=== PATIENT | female | born 1930 | race Caucasian/White ===

== ENCOUNTER 2016-10-07 18:28 | Inpatient (IN) | payer MEDICARE, OTHER ==
[2016-10-07] MEDS ORDERED: Acetaminophen TAB* 325 MG PO ONE (18:51)
[2016-10-07 19:00] LABS: Hematocrit 30 % (35-47); Hemoglobin 9.9 g/dl (12.0-16.0); Mean Corpuscular HGB Conc 32 g/dl (31-36); Mean Corpuscular Hemoglobin 29 pg (27-31); Mean Corpuscular Volume 91 fL (80-97); Mean Platelet Volume 8 um3 (7.4-10.4); Red Blood Count 3.35 10^6/ul (4.0-5.4); Red Cell Distribution Width 14 % (10.5-15); White Blood Count 11.8 10^3/ul (3.5-10.8)
[2016-10-07 19:12] LABS: Albumin 3.3 g/dL (3.2-5.2); BUN/Creatinine Ratio 17.9 (8-20); C Reactive Protein 149.65 mg/L (< 5.00); Calcium 8.6 mg/dL (8.6-10.3); EGFR African American 59.6 (>60); EGFR Non-African American 46.3 (>60); Globulin 3.8 g/dL (2-4); Total Bilirubin 0.6 mg/dL (0.2-1.0); Total Protein 7.1 g/dL (6.4-8.9)
[2016-10-07 19:13] LABS: Troponin I 0.01 ng/mL (<0.04)
[2016-10-07 19:20] LABS: Potassium 3.9 mmol/L (3.5-5.0)
--- NOTE | 2016-10-07 19:43 | RAD ---
INDICATION: Cough. Short of breath. COMPARISON: January 19, 2016 TECHNIQUE: An AP portable view obtained at 1930 hours is submitted. FINDINGS: Bones/Soft Tissues: There are no acute bony findings. Cardiomediastinal: The heart is normal in size. Central pulmonary vessels and interstitium are mildly prominent.. Lungs: There are no focal infiltrates. Pleura: There are small bilateral pleural effusions. Other: None IMPRESSION: SUSPECT MILD INTERSTITIAL CONGESTION.
[2016-10-07] MEDS ORDERED: Levofloxacin 750 MG IVPREMIX(* 750 MG/150 ML BAG IVPB ONE (19:45)
[2016-10-07] MEDS: NS 0.9% 1000 ML* 2,000 ML IV ONE ×2 (20:05→21:10)
--- NOTE | 2016-10-07 20:10 | ED ---
Marcelo Sparrow Billy, scribed for Tino Dorantes MD on 10/07/16 at 1858 . Complex/Multi-Sys Presentation - HPI Summary HPI Summary: Patient is an 86 year-old female BIBA to [facility] for evaluation of cough and SOB for the last week. Glass Cutter reports that patient has also been lethargic, delirious, rhinorrhea, and ankle swelling. Fever 101F. Nothing has made her symptoms better or worse. Patient has been treated with azithromycin for 3 days without improvement. She normally has 24/7 home care. Positive recent flu shot, within the last year. - History Of Current Complaint Chief Complaint: EDRespiratoryDistress Time Seen by Provider: 10/07/16 18:51 Hx Obtained From: Patient Onset/Duration: Gradual Onset, Lasting Days, Still Present Timing: Constant Severity Currently: Moderate Severity Initially: Moderate Aggravating Factor(s): none Alleviating Factor(s): none Associated Signs And Symptoms: Positive: Confusion, SOB, Cough, Fever, Other - lethargy, rhinorrhea - Allergies/Home Medications Allergies/Adverse Reactions: Allergies Allergy/AdvReac Type Severity Reaction Status Date / Time Penicillins Allergy Unknown Verified 01/19/16 10:48 Reaction Details Home Medications: Home Medications Bumetanide TAB* [Bumex 2 MG TAB*] 2 mg PO BID 10/07/16 [History Confirmed ] Calcium & Phosphorus W/ Vitami [Citracal+D3 250-107-500 mg-mg-Unit] 1 chw PO DAILY 10/07/16 [History Confirmed 10/07/16] Docusate CAP* [Colace Cap*] 100 mg PO BID 10/07/16 [History Confirmed 10/07/16] Multivitamins/Minerals TAB* [Theragran/minerals TAB*] 1 tab PO DAILY 10/07/16 [ History Confirmed 10/07/16] clonazePAM TAB(*) [Klonopin TAB(*)] 1 mg PO TID PRN 10/07/16 [History Confirmed 10/07/16] PMH/Surg Hx/FS Hx/Imm Hx Cardiovascular History: Reports: Hx Congestive Heart Failure, Hx Coronary Artery Disease, Hx Hypertension Respiratory History: Reports: Hx Asthma, Hx Chronic Obstructive Pulmonary Disease (COPD), Other Respiratory Problems/Disorders - 2.5L Home O2 Neurological History: Reports: Hx Dementia, Other Neuro Impairments/Disorders - Parkinson's Psychiatric History: Reports: Hx Anxiety - Cancer History Cancer Type, Location and Year: BREAST CANCER Hx Radiation Therapy: Yes Hx Palliative Cancer Treatment: Yes - LEFT MASECTOMY - Surgical History Surgery Procedure, Year, and Place: LUMPECTOMY & MASECTOMY LEFT BREAST. CATARACT SURGERY Hx Anesthesia Reactions: No - Immunization History Date of Influenza Vaccine: 06/12/13 Infectious Disease History: Unable to Obtain/Confirm Infectious Disease History: Denies: Traveled Outside the [place] in Last 30 Days - Family History Known Family History: Positive: Hypertension - Social History Alcohol Use: None Substance Use Type: Reports: None Hx Tobacco Use: No Smoking Status (MU): Never Smoked Tobacco Review of Systems Positive: Fever Positive: Nasal Discharge Positive: Shortness Of Breath, Cough Neurological: Other - lethargy, "delirious" All Other Systems Reviewed And Are Negative: Yes Physical Exam - Summary Physical Exam Summary: The patient is well-nourished in no acute distress and in no acute pain. The skin is warm and dry and pale. Decreased skin turgor. HEENT: The head is normocephalic and atraumatic. Pupils not visualized. The conjunctivae are clear and without drainage. Nares are patent and without drainage. Mouth reveals dry mucous membranes and the throat is without erythema and exudate. The external ears are intact. The ear canals are patent and without drainage. The tympanic membranes are intact. Neck is supple with full range of motion and non-tender. There are no carotid bruits. There is no neck vein distension. Respiratory: Chest is non-tender. Rales in the right lung base. Cardiovascular: Heart is regular rate and rhythm. There is no murmur or rub auscultated. There is no peripheral edema and pulses are symmetrical and equal. Abdomen: The abdomen is soft and non-tender. There are normal bowel sounds heard in all four quadrants and there is no organomegaly palpated. Musculoskeletal: There is no back pain noted. Extremities are non-tender with full range of motion. There is good capillary refill. Mild pitting edema of the pretibial regions. Neurological: Followed simple commands, but had general weakness. Psychiatric: Level 5 caveat. Triage Information Reviewed: Yes Vital Signs On Initial Exam: Initial Vitals Temp Pulse Resp BP Pulse Ox 101.0 F 79 18 109/55 93 10/07/16 18:29 03/09/17 18:29 10/07/16 18:29 10/07/16 18:29 10/07/16 18:29 Vital Signs Reviewed: Yes Diagnostics - Vital Signs Vital Signs Temp Pulse Resp BP Pulse Ox 10/07/16 18:29 101.0 F 79 18 109/55 93 - Laboratory Lab Results: Lab Results 10/07/16 10/07/16 10/07/16 Range/Units 18:44 18:44 18:44 WBC 11.8 H (3.5-10.8) 10^3/ul RBC 3.35 L (4.0-5.4) 10^6/ul Hgb 9.9 L (12.0-16.0) g/dl Hct 30 L (35-47) % MCV 91 (80-97) fL MCH 29 (27-31) pg MCHC 32 (31-36) g/dl RDW 14 (10.5-15) % Plt Count 217 (150-450) 10^3/ul MPV 8 (7.4-10.4) um3 Neut % (Auto) 67.1 (38-83) % Lymph % (Auto) 20.8 L (25-47) % [place] % (Auto) 8.4 (1-9) % Eos % (Auto) 3.3 (0-6) % Baso % (Auto) 0.4 (0-2) % Absolute Neuts (auto) 7.9 H (1.5-7.7) 10^3/ul Absolute Lymphs (auto) 2.4 (1.0-4.8) 10^3/ul Absolute Monos (auto) 1.0 H (0-0.8) 10^3/ul Absolute Eos (auto) 0.4 (0-0.6) 10^3/ul Absolute Basos (auto) 0 (0-0.2) 10^3/ul Absolute Nucleated RBC 0 10^3/ul Nucleated RBC % 0 INR (Anticoag Therapy) 0.95 (0.89-1.11) APTT 24.4 L (26.0-36.3) seconds Sodium 133 (133-145) mmol/L Potassium 3.9 (3.5-5.0) mmol/L Chloride 96 L (101-111) mmol/L Carbon Dioxide 28 (22-32) mmol/L Anion Gap 9 (2-11) mmol/L BUN 20 (6-24) mg/dL Creatinine 1.12 H (0.51-0.95) mg/dL Est GFR ( Amer) 59.6 (>60) Est GFR (Non-Af Amer) 46.3 (>60) BUN/Creatinine Ratio 17.9 (8-20) Glucose 148 H (70-100) mg/dL Lactic Acid (0.5-2.0) mmol/L Calcium 8.6 (8.6-10.3) mg/dL Total Bilirubin 0.60 (0.2-1.0) mg/dL AST 27 (13-39) U/L ALT 4 L (7-52) U/L Alkaline Phosphatase 103 (34-104) U/L Troponin I 0.01 (<0.04) ng/mL C-Reactive Protein 149.65 H (< 5.00) mg/L Total Protein 7.1 (6.4-8.9) g/dL Albumin 3.3 (3.2-5.2) g/dL Globulin 3.8 (2-4) g/dL Albumin/Globulin Ratio 0.9 L (1-3) Influenza A (Rapid) (Negative) Influenza B (Rapid) (Negative) 10/07/16 10/07/16 Range/Units 18:44 19:04 WBC (3.5-10.8) 10^3/ul RBC (4.0-5.4) 10^6/ul Hgb (12.0-16.0) g/dl Hct (35-47) % MCV (80-97) fL MCH (27-31) pg MCHC (31-36) g/dl RDW (10.5-15) % Plt Count (150-450) 10^3/ul MPV (7.4-10.4) um3 Neut % (Auto) (38-83) % Lymph % (Auto) (25-47) % [place] % (Auto) (1-9) % Eos % (Auto) (0-6) % Baso % (Auto) (0-2) % Absolute Neuts (auto) (1.5-7.7) 10^3/ul Absolute Lymphs (auto) (1.0-4.8) 10^3/ul Absolute Monos (auto) (0-0.8) 10^3/ul Absolute Eos (auto) (0-0.6) 10^3/ul Absolute Basos (auto) (0-0.2) 10^3/ul Absolute Nucleated RBC 10^3/ul Nucleated RBC % INR (Anticoag Therapy) (0.89-1.11) APTT (26.0-36.3) seconds Sodium (133-145) mmol/L Potassium (3.5-5.0) mmol/L Chloride (101-111) mmol/L Carbon Dioxide (22-32) mmol/L Anion Gap (2-11) mmol/L BUN (6-24) mg/dL Creatinine (0.51-0.95) mg/dL Est GFR ( Amer) (>60) Est GFR (Non-Af Amer) (>60) BUN/Creatinine Ratio (8-20) Glucose (70-100) mg/dL Lactic Acid 1.4 (0.5-2.0) mmol/L Calcium (8.6-10.3) mg/dL Total Bilirubin (0.2-1.0) mg/dL AST (13-39) U/L ALT (7-52) U/L Alkaline Phosphatase (34-104) U/L Troponin I (<0.04) ng/mL C-Reactive Protein (< 5.00) mg/L Total Protein (6.4-8.9) g/dL Albumin (3.2-5.2) g/dL Globulin (2-4) g/dL Albumin/Globulin Ratio (1-3) Influenza A (Rapid) Negative (Negative) Influenza B (Rapid) Negative (Negative) Result Diagrams: 10/07/16 18:44 10/07/16 18:44 Lab Statement: Any lab studies that have been ordered have been reviewed, and results considered in the medical decision making process. - Radiology CXR Radiology Interpretation Completed By: Radiologist - SUSPECT MILD INTERSTITIAL CONGESTION. - EKG 1855 EKG Interpretation: NSR 75 bpm; Q-waves in II, III, and aVF; no ST elevation Re-Evaluation - Re-Evaluation First Eval Re-Evaluation Time: 19:48 Change: Unchanged Comment: Labs and imaging reviewed. Plan for admission discussed. Patient remains lethargic. Complex Multi-Symp Course/Dx Assessment/Plan: 86 y/o female coming to the ED for evaluation of SOB and cough. CXR shows suspect mild interstitial congestion. EKG shows NSR and Q- waves without ST elevation. Case discussed with hospitalist, who accepted admission. - Diagnoses Differential Diagnoses/HQI/PQRI: Other - pneumonia, influenza, chf, pneumonia, copd exacerabation, bronchitis, uti Provider Diagnoses: Fever, PNA (pneumonia), CHF (congestive heart failure), Altered mental status - Physician Notifications Discussed Care Of Patient With: Dr. Robb (hospitalist) @ 2004: accepts admission. Discharge - Discharge Plan Condition: Stable Disposition: ADMITTED TO [facility] Referrals: No Primary Care Phys,NOPCP [Primary Care Provider] - The documentation as recorded by the Marcelo ramírez Billy accurately reflects the service I personally performed and the decisions made by me, Tino Dorantes MD.
--- NOTE | 2016-10-07 21:10 | HP ---
H&P (Free Text) History and Physical: PCP: Cresencio Sahu MD Date/Time of Evaluation: 10/07/2016 2115 CC: SOB HPI: Mrs Bach is an 86YO female who is moderately demented and unable to contribute to this history which was obtained from family present, ED staff, & the available medical record. Mrs Bach reportedly began having increased head/ nasal congestion ~1 week ago for which her PCP called in azithromycin. She has been having increased pedal edema associated with increased thirst, but no swelling into the lower leg. There is no report of chest pain, N/V, abdominal pain, or other issues. She has only taken 2days of the azithromycin. Work up shows her febrile at 38.3C with otherwise stable vitals. CXR is most consistent with mild failure, but BNP speaks against this at 71. She has a stable normocytic anemia & stable CKD stg 3a. ECG is benign. PMedHx CHF CAD CKD stg 3a COPD Parkinsonism dementia normocytic anemia Allergies Penicillins Allergy (Verified 01/19/16 10:48) Unknown Reaction Details Ambulatory Orders Albuterol/Ipratropium NEB.PATRICK* [Duoneb NEB.PATRICK*] 1 dose INH BID PRN 08/22/13 Aspirin TAB* [Aspirin 325 MG TAB*] 325 mg PO DAILY 08/22/13 Fluticasone-Salmeterol 250-50* [Advair Diskus 250-50*] 1 puff INH BID 08/22/13 Isosorbide Mononitrate ER TAB* [Imdur ER TAB*] 30 mg PO QAM 08/22/13 Metoprolol Tartrate TAB* [Lopressor TAB*] 12.5 mg PO DAILY 08/22/13 Polyethylene Glycol 3350* [Miralax*] 1 pkt PO DAILY 08/22/13 Primidone TAB(*) [Mysoline TAB(*)] 50 mg PO BEDTIME 08/22/13 QUEtiapine TAB* [Seroquel TAB*] 25 mg PO BID 08/22/13 Tiotropium CAP.INH* [Spiriva CAP.INH*] 1 inh INH DAILY 08/22/13 Topiramate TAB(*) [Topamax 25 MG(*)] 25 mg PO BEDTIME 08/22/13 Atorvastatin* [Lipitor 20 MG*] 20 mg PO DAILY 01/19/16 Carbidopa/Levodop 25/100 MG(*) [Sinemet 25/100 TAB(*)] 1.5 tab PO TID 06/14/16 Bumetanide TAB* [Bumex 2 MG TAB*] 2 mg PO BID 10/07/16 Calcium & Phosphorus W/ Vitami [Citracal+D3 250-107-500 mg-mg-Unit] 1 chw PO DAILY 10/07/16 Docusate CAP* [Colace Cap*] 100 mg PO BID 10/07/16 Multivitamins/Minerals TAB* [Theragran/minerals TAB*] 1 tab PO DAILY 10/07/16 clonazePAM TAB(*) [Klonopin TAB(*)] 1 mg PO TID PRN 10/07/16 PSurgHx lumpectomy, L breast OU cataract extractions cardiac stent SocHx: no tobacco, alcohol, or recreational drugs; , lives with her ; uses a walker to ambulate; full code status FamHx: unobtainable ROS: as above, otherwise reviewed and all were negative Constitutional: NAD, normally developed, well-nourished white female vitals: Vital Signs Temp 38.3 C 10/07/16 18:29 Pulse 74 10/07/16 19:30 Resp 17 10/07/16 19:30 BP 94/50 10/07/16 19:30 Pulse Ox 99 10/07/16 20:36 Intake & Output 10/06/16 10/07/16 10/07/16 23:59 11:59 23:59 Intake Total 1000 Balance 1000 Weight 49.895 kg Intake: IV Fluids 1000 HEENM: atraumatic; sclera/conjunctiva: non-icteric/clear; hearing: clinically mildly decreased; oropharynx: clear, mucosa moist Neck: soft tissue: non-tender; thyroid: normal Pulmonary: mid- to end- expiratory wheeze with bibasilar coarse crackles which improve notably with deep inspiration, good aeration, no accessory muscle use CV: RR/RR, normal S1S2, no carotid bruit, no jugular venous distention, 2+ B DP/ PT, no edema Abdominal: soft, non-distended, non-tender, no rebound/guarding/rigidity, normoactive bowel sounds, no hepatosplenomegaly or masses, no costovertebral angle tenderness Musculoskeletal: general: grossly intact; gait: unsteady Integumental: normal appearance and texture Psychiatric orientation: AA&O to person only affect: calm mood: cooperative eye contact: fair content: unreliable memory: impaired responses: slightly slowed insight: poor Testing: Lab Results 10/07/16 10/07/16 10/07/16 Range/Units 18:44 18:44 18:44 WBC 11.8 H (3.5-10.8) 10^3/ul RBC 3.35 L (4.0-5.4) 10^6/ul Hgb 9.9 L (12.0-16.0) g/dl Hct 30 L (35-47) % MCV 91 (80-97) fL MCH 29 (27-31) pg MCHC 32 (31-36) g/dl RDW 14 (10.5-15) % Plt Count 217 (150-450) 10^3/ul MPV 8 (7.4-10.4) um3 Neut % (Auto) 67.1 (38-83) % Lymph % (Auto) 20.8 L (25-47) % [place] % (Auto) 8.4 (1-9) % Eos % (Auto) 3.3 (0-6) % Baso % (Auto) 0.4 (0-2) % Absolute Neuts (auto) 7.9 H (1.5-7.7) 10^3/ul Absolute Lymphs (auto) 2.4 (1.0-4.8) 10^3/ul Absolute Monos (auto) 1.0 H (0-0.8) 10^3/ul Absolute Eos (auto) 0.4 (0-0.6) 10^3/ul Absolute Basos (auto) 0 (0-0.2) 10^3/ul Absolute Nucleated RBC 0 10^3/ul Nucleated RBC % 0 INR (Anticoag Therapy) 0.95 (0.89-1.11) APTT 24.4 L (26.0-36.3) seconds Sodium 133 (133-145) mmol/L Potassium 3.9 (3.5-5.0) mmol/L Chloride 96 L (101-111) mmol/L Carbon Dioxide 28 (22-32) mmol/L Anion Gap 9 (2-11) mmol/L BUN 20 (6-24) mg/dL Creatinine 1.12 H (0.51-0.95) mg/dL Est GFR ( Amer) 59.6 (>60) Est GFR (Non-Af Amer) 46.3 (>60) BUN/Creatinine Ratio 17.9 (8-20) Glucose 148 H (70-100) mg/dL Lactic Acid (0.5-2.0) mmol/L Calcium 8.6 (8.6-10.3) mg/dL Total Bilirubin 0.60 (0.2-1.0) mg/dL AST 27 (13-39) U/L ALT 4 L (7-52) U/L Alkaline Phosphatase 103 (34-104) U/L Troponin I 0.01 (<0.04) ng/mL C-Reactive Protein 149.65 H (< 5.00) mg/L B-Natriuretic Peptide ( - 100) pg/mL Total Protein 7.1 (6.4-8.9) g/dL Albumin 3.3 (3.2-5.2) g/dL Globulin 3.8 (2-4) g/dL Albumin/Globulin Ratio 0.9 L (1-3) Influenza A (Rapid) (Negative) Influenza B (Rapid) (Negative) 10/07/16 10/07/16 10/07/16 Range/Units 18:44 18:44 19:04 WBC (3.5-10.8) 10^3/ul RBC (4.0-5.4) 10^6/ul Hgb (12.0-16.0) g/dl Hct (35-47) % MCV (80-97) fL MCH (27-31) pg MCHC (31-36) g/dl RDW (10.5-15) % Plt Count (150-450) 10^3/ul MPV (7.4-10.4) um3 Neut % (Auto) (38-83) % Lymph % (Auto) (25-47) % [place] % (Auto) (1-9) % Eos % (Auto) (0-6) % Baso % (Auto) (0-2) % Absolute Neuts (auto) (1.5-7.7) 10^3/ul Absolute Lymphs (auto) (1.0-4.8) 10^3/ul Absolute Monos (auto) (0-0.8) 10^3/ul Absolute Eos (auto) (0-0.6) 10^3/ul Absolute Basos (auto) (0-0.2) 10^3/ul Absolute Nucleated RBC 10^3/ul Nucleated RBC % INR (Anticoag Therapy) (0.89-1.11) APTT (26.0-36.3) seconds Sodium (133-145) mmol/L Potassium (3.5-5.0) mmol/L Chloride (101-111) mmol/L Carbon Dioxide (22-32) mmol/L Anion Gap (2-11) mmol/L BUN (6-24) mg/dL Creatinine (0.51-0.95) mg/dL Est GFR ( Amer) (>60) Est GFR (Non-Af Amer) (>60) BUN/Creatinine Ratio (8-20) Glucose (70-100) mg/dL Lactic Acid 1.4 (0.5-2.0) mmol/L Calcium (8.6-10.3) mg/dL Total Bilirubin (0.2-1.0) mg/dL AST (13-39) U/L ALT (7-52) U/L Alkaline Phosphatase (34-104) U/L Troponin I (<0.04) ng/mL C-Reactive Protein (< 5.00) mg/L B-Natriuretic Peptide 71 ( - 100) pg/mL Total Protein (6.4-8.9) g/dL Albumin (3.2-5.2) g/dL Globulin (2-4) g/dL Albumin/Globulin Ratio (1-3) Influenza A (Rapid) Negative (Negative) Influenza B (Rapid) Negative (Negative) ECG, personally reviewed: NSR rate 75, small inferior Q-waves of uncertain significance CXR, personally reviewed: IMPRESSION: SUSPECT MILD INTERSTITIAL CONGESTION. Impression: 86F presenting with SOB and fever w/ CXR more consistent w/ CHF but a BNP of 73 DIAGNOSIS & PLAN Primary atypical pneumonia, suspected : given 750mg levofloxacin in ED, will not continue given HX dementia : start azithromycin & ceftriaxone IV tomorrow : guaifenesin : blood & sputum CXs : obtain UA : IVFs gently given HX CHF & CXR appearance : supplemental oxygen : supportive care COPD exacerbation, mild : albuterol nebs : mometasone/salmeterol : tiotropium : incentive spirometry : IV methylprednisolone Secondary CHF : continue bumetanide, metoprolol CAD : continue aspirin, metoprolol, & isosorbide mononitrate HLD : continue atorvastatin Parkinsonism : continue carbi/levodopa & primidone dementia : continue quetiapine Admission Rational: observation for SOB, suspect CAP less likely CHF DVTp: heparin SQ & SCDs Code Status: full HCP:
[2016-10-07] MEDS ORDERED: clonazePAM TAB(*) 1 MG PO PRN (21:35)
[2016-10-07] MEDS ORDERED: Acetaminophen TAB* 325 MG PO PRN (21:51)
[2016-10-07] MEDS ORDERED: Albuterol 2.5 MG/3 ML NEB.SOL* (0.083%) INH PRN (21:51)
[2016-10-07] MEDS ORDERED: Ondansetron INJ* 2 MG/ML VIAL IV PRN (21:51)
[2016-10-07] MEDS ORDERED: Melatonin (NF) 3 MG TAB PO PRN (21:51)
[2016-10-07] MEDS ORDERED: methylPREDNISolone 125 MG* 2 ML VIAL IV ONE (22:57)
[2016-10-08] MEDS: guaiFENesin ER TAB 600 MG PO SCH ×3 (00:16→20:07)
[2016-10-08] MEDS ORDERED: CMCS Melatonin (NF) 3 MG TAB PO PRN (04:05)
[2016-10-08 05:19] LABS: Hematocrit 29 % (35-47); Hemoglobin 9.4 g/dl (12.0-16.0); Mean Corpuscular HGB Conc 33 g/dl (31-36); Mean Corpuscular Hemoglobin 30 pg (27-31); Mean Corpuscular Volume 91 fL (80-97); Mean Platelet Volume 8 um3 (7.4-10.4); Red Blood Count 3.14 10^6/ul (4.0-5.4); Red Cell Distribution Width 15 % (10.5-15); White Blood Count 9.8 10^3/ul (3.5-10.8)
[2016-10-08] MEDS: Omeprazole CAP* 20 MG PO SCH (05:20)
[2016-10-08] MEDS: Heparin VIAL(*) 5000 UNITS/ML VIAL (FIVE THOUSAND) SUBCUT SCH ×3 (05:20→20:29)
[2016-10-08 05:29] LABS: BUN/Creatinine Ratio 19.1 (8-20); Calcium 8.4 mg/dL (8.6-10.3); EGFR Non-African American 56.7 (>60); Potassium 3.5 mmol/L (3.5-5.0)
[2016-10-08] MEDS: Albuterol 2.5 MG/3 ML NEB.SOL* (0.083%) INH SCH ×4 (06:04→19:29)
[2016-10-08 06:31] LABS: Urine Bilirubin Negative (Negative); Urine Glucose Negative (Negative); Urine Nitrite Negative (Negative)
[2016-10-08] MEDS ORDERED: Spiriva Inhaler DEVICE* 1 EACH DEVICE INH ONE (09:00)
[2016-10-08] MEDS ORDERED: Isosorbide Mononitrate ER TAB* 30 MG PO SCH (09:00)
[2016-10-08] MEDS ORDERED: Bumetanide TAB* 2 MG PO SCH (09:00)
[2016-10-08] MEDS ORDERED: methylPREDNISolone SOD 40 MG* 1 ML VIAL IV SCH (09:00)
[2016-10-08] MEDS ORDERED: Metoprolol Tartrate TAB* 25 MG PO SCH (09:00)
--- NOTE | 2016-10-08 09:04 | PN ---
Subjective Date of Service: 10/08/16 Interval History: Patient seen this morning with present. She is a bit confused but says she wants to go home. Denies any complaints. says he feels her cough has improved. No further fever or chills. He says she was fairly weak over the last days but thinks she is improving today although still needing significant assistance getting to commode. Family History: Unchanged from Admission Social History: Unchanged from Admission Past Medical History: Unchanged from Admission Objective Active Medications: Acetaminophen (Tylenol Tab*) 650 mg PO Q6H PRN Albuterol (Ventolin 2.5 Mg/3 Ml Neb.Sanjuanita*) 2.5 mg INH Q2H PRN Albuterol (Ventolin 2.5 Mg/3 Ml Neb.Sanjuanita*) 2.5 mg INH [id number] AWAKE LENORE Aspirin (Aspirin Tab*) 325 mg PO DAILY LENORE Atorvastatin Calcium (Lipitor*) 20 mg PO DAILY LENORE Bumetanide (Bumex Tab*) 2 mg PO BID LENORE Carbidopa/Levodopa (Sinemet 25/100 Tab(*)) 1.5 tab PO TID LENORE Clonazepam (Klonopin Tab(*)) 1 mg PO TID PRN Device (Tiotropium Inhaler Device*) 1 each INH 0900 ONE Docusate Sodium (Colace Cap*) 100 mg PO BID LENORE Guaifenesin (Mucinex*) 1,200 mg PO BID LENORE Heparin Sodium (Porcine) (Heparin Vial(*)) 5,000 units SUBCUT Q8HR LENORE Ceftriaxone Sodium 1,000 mg/ (Sodium Chloride) 50 mls @ 200 mls/hr IVPB Q24H LENORE Azithromycin 500 mg/ Sodium (Chloride) 250 mls @ 250 mls/hr IVPB Q24H LENORE Isosorbide Mononitrate (Imdur Er Tab*) 30 mg PO QAM LENORE Melatonin (Melatonin (Nf)) 3 mg PO BEDTIME PRN; Protocol Metoprolol Tartrate (Lopressor Tab*) 12.5 mg PO DAILY LENORE Mometasone Furoate/Formoterol Fumar (Dulera 200/5 Mdi*) 2 puff INH BID LENORE Omeprazole (Prilosec Cap*) 20 mg PO DAILY@0600 LENORE Ondansetron HCl (Zofran Inj*) 4 mg IV Q6H PRN Polyethylene Glycol/Electrolytes (Miralax*) 17 gm PO DAILY LENORE Prednisone (Deltasone Tab*) 40 mg PO DAILY LENORE Primidone (Mysoline Tab(*)) 50 mg PO BEDTIME LENORE Quetiapine Fumarate (Seroquel Tab*) 25 mg PO BID LENORE Tiotropium [place] (Spiriva Cap.Inh*) 1 cap INH DAILY LENORE Topiramate (Topamax(*)) 25 mg PO BEDTIME LENORE Vital Signs 10/07/16 10/07/16 10/08/16 21:35 23:22 00:28 Temperature 98.1 F Pulse Rate 71 84 Respiratory 20 18 19 Rate Blood Pressure 91/42 105/53 (mmHg) O2 Sat by Pulse 100 100 Oximetry 10/08/16 10/08/16 10/08/16 02:28 03:52 04:13 Temperature 98.8 F 97.4 F Pulse Rate 68 92 Respiratory 17 19 20 Rate Blood Pressure 88/42 86/57 (mmHg) O2 Sat by Pulse 96 93 Oximetry 10/08/16 10/08/16 04:48 07:32 Temperature 97.7 F Pulse Rate 87 74 Respiratory 16 20 Rate Blood Pressure 106/53 112/47 (mmHg) O2 Sat by Pulse 95 95 Oximetry Oxygen Devices in Use Now: Nasal Cannula - 3L Appearance: Elderly, F, laying in bed, noticeable tremor Eyes: No Scleral Icterus Ears/Nose/Mouth/Throat: Mucous Membranes Moist Neck: NL Appearance and Movements; NL JVP Respiratory: Symmetrical Chest Expansion and Respiratory Effort, - - mild tachypnea, good air movement, no wheezing appreciated in lungs maybe some in upper airways Cardiovascular: NL Sounds; No Murmurs; No JVD, RRR Abdominal: NL Sounds; No Tenderness; No Distention Lymphatic: No Cervical Adenopathy Extremities: - - Minimal LE edema Skin: No Rash or Ulcers Neurological: - - Alert to self Result Diagrams: 10/08/16 04:46 10/08/16 04:46 Additional Lab and Data: Lab Results 10/07/16 10/07/16 10/07/16 Range/Units 18:44 18:44 18:44 WBC 11.8 H (3.5-10.8) 10^3/ul RBC 3.35 L (4.0-5.4) 10^6/ul Hgb 9.9 L (12.0-16.0) g/dl Hct 30 L (35-47) % MCV 91 (80-97) fL MCH 29 (27-31) pg MCHC 32 (31-36) g/dl RDW 14 (10.5-15) % Plt Count 217 (150-450) 10^3/ul MPV 8 (7.4-10.4) um3 Neut % (Auto) 67.1 (38-83) % Lymph % (Auto) 20.8 L (25-47) % [place] % (Auto) 8.4 (1-9) % Eos % (Auto) 3.3 (0-6) % Baso % (Auto) 0.4 (0-2) % Absolute Neuts (auto) 7.9 H (1.5-7.7) 10^3/ul Absolute Lymphs (auto) 2.4 (1.0-4.8) 10^3/ul Absolute Monos (auto) 1.0 H (0-0.8) 10^3/ul Absolute Eos (auto) 0.4 (0-0.6) 10^3/ul Absolute Basos (auto) 0 (0-0.2) 10^3/ul Absolute Nucleated RBC 0 10^3/ul Nucleated RBC % 0 INR (Anticoag Therapy) 0.95 (0.89-1.11) APTT 24.4 L (26.0-36.3) seconds Sodium 133 (133-145) mmol/L Potassium 3.9 (3.5-5.0) mmol/L Chloride 96 L (101-111) mmol/L Carbon Dioxide 28 (22-32) mmol/L Anion Gap 9 (2-11) mmol/L BUN 20 (6-24) mg/dL Creatinine 1.12 H (0.51-0.95) mg/dL Est GFR ( Amer) 59.6 (>60) Est GFR (Non-Af Amer) 46.3 (>60) BUN/Creatinine Ratio 17.9 (8-20) Glucose 148 H (70-100) mg/dL Lactic Acid (0.5-2.0) mmol/L Calcium 8.6 (8.6-10.3) mg/dL Total Bilirubin 0.60 (0.2-1.0) mg/dL AST 27 (13-39) U/L ALT 4 L (7-52) U/L Alkaline Phosphatase 103 (34-104) U/L Troponin I 0.01 (<0.04) ng/mL C-Reactive Protein 149.65 H (< 5.00) mg/L Total Protein 7.1 (6.4-8.9) g/dL Albumin 3.3 (3.2-5.2) g/dL Globulin 3.8 (2-4) g/dL Albumin/Globulin Ratio 0.9 L (1-3) Influenza A (Rapid) (Negative) Influenza B (Rapid) (Negative) 10/07/16 10/07/16 Range/Units 18:44 19:04 WBC (3.5-10.8) 10^3/ul RBC (4.0-5.4) 10^6/ul Hgb (12.0-16.0) g/dl Hct (35-47) % MCV (80-97) fL MCH (27-31) pg MCHC (31-36) g/dl RDW (10.5-15) % Plt Count (150-450) 10^3/ul MPV (7.4-10.4) um3 Neut % (Auto) (38-83) % Lymph % (Auto) (25-47) % [place] % (Auto) (1-9) % Eos % (Auto) (0-6) % Baso % (Auto) (0-2) % Absolute Neuts (auto) (1.5-7.7) 10^3/ul Absolute Lymphs (auto) (1.0-4.8) 10^3/ul Absolute Monos (auto) (0-0.8) 10^3/ul Absolute Eos (auto) (0-0.6) 10^3/ul Absolute Basos (auto) (0-0.2) 10^3/ul Absolute Nucleated RBC 10^3/ul Nucleated RBC % INR (Anticoag Therapy) (0.89-1.11) APTT (26.0-36.3) seconds Sodium (133-145) mmol/L Potassium (3.5-5.0) mmol/L Chloride (101-111) mmol/L Carbon Dioxide (22-32) mmol/L Anion Gap (2-11) mmol/L BUN (6-24) mg/dL Creatinine (0.51-0.95) mg/dL Est GFR ( Amer) (>60) Est GFR (Non-Af Amer) (>60) BUN/Creatinine Ratio (8-20) Glucose (70-100) mg/dL Lactic Acid 1.4 (0.5-2.0) mmol/L Calcium (8.6-10.3) mg/dL Total Bilirubin (0.2-1.0) mg/dL AST (13-39) U/L ALT (7-52) U/L Alkaline Phosphatase (34-104) U/L Troponin I (<0.04) ng/mL C-Reactive Protein (< 5.00) mg/L Total Protein (6.4-8.9) g/dL Albumin (3.2-5.2) g/dL Globulin (2-4) g/dL Albumin/Globulin Ratio (1-3) Influenza A (Rapid) Negative (Negative) Influenza B (Rapid) Negative (Negative) Assess/Plan/Problems-Billing Assessment: CAP, mild COPD exacerbation in an 86 yo F with hx of CAD, CHF, COPD on home O2, Parkinson's, dementia, CKD3 - Patient Problems (1) CAP (community acquired pneumonia) Current Visit: Yes Comment: May be atypical. Continue CTX/Azithromycin. Stop IVF for now. (2) COPD exacerbation Current Visit: No Comment: c/w O2 prednisone 40mg x 5 days nebulizers and inhalers (3) CHF (congestive heart failure) Current Visit: Yes Comment: Continue metoprolol. Hold Bumex this AM. (4) CAD (coronary artery disease) Current Visit: Yes Comment: Continue ASA, Metoprolol, Imdur (5) Parkinson disease Current Visit: No Comment: sinemet (6) DVT prophylaxis Current Visit: Yes Comment: HSQ Status and Disposition: Pending PT eval. If still significantly weak from PNA, will need to stay as inpatient.
[2016-10-08] MEDS: Polyethylene Glycol 3350* 17 GM PACKET PO SCH (09:41)
[2016-10-08] MEDS: Carbidopa/Levodop 25/100 MG TAB(*) PO SCH ×3 (09:43→20:08)
[2016-10-08] MEDS: QUEtiapine TAB* 25 MG PO SCH ×2 (09:48→20:07)
[2016-10-08] MEDS: predniSONE TAB* 20 MG PO SCH (09:50)
[2016-10-08] MEDS: Aspirin TAB* 325 MG PO SCH (09:50)
[2016-10-08] MEDS: Atorvastatin* 20 MG TAB PO SCH (09:52)
[2016-10-08] MEDS: Docusate CAP* 100 MG PO SCH ×2 (09:52→20:08)
[2016-10-08] MEDS: Tiotropium CAP.INH* CAP.INH/18 MCG (USE ORDER SET !) INH SCH (10:04)
[2016-10-08] MEDS: Mometasone/Formoter 200/5 MDI INH SCH ×2 (10:05→20:28)
[2016-10-08] MEDS ORDERED: Magnesium Hydroxide LIQ* 30 ML UDC PO PRN (13:50)
[2016-10-08] MEDS: Senna TAB PO SCH (14:08)
[2016-10-08] MEDS ORDERED: clonazePAM TAB(*) 1 MG PO ONE (16:54)
[2016-10-08] MEDS: cefTRIAXone VIAL(*) 1,000 MG in NS 0.9% 50 ML* 50 ML IVPB SCH (20:04)
[2016-10-08] MEDS: clonazePAM TAB(*) 1 MG PO SCH (20:07)
[2016-10-08] MEDS: Primidone TAB(*) 50 MG PO SCH (20:08)
[2016-10-08] MEDS: Topiramate TAB(*) 25 MG PO SCH (20:08)
[2016-10-08] MEDS: Azithromycin IV(*) 500 MG in NS 0.9% 250 ML* 250 ML IVPB SCH (20:29)
[2016-10-09] MEDS: Albuterol 2.5 MG/3 ML NEB.SOL* (0.083%) INH SCH ×4 (00:58→19:25)
[2016-10-09] MEDS: Heparin VIAL(*) 5000 UNITS/ML VIAL (FIVE THOUSAND) SUBCUT SCH ×3 (05:21→21:31)
[2016-10-09] MEDS: Omeprazole CAP* 20 MG PO SCH (05:21)
[2016-10-09] MEDS: Tiotropium CAP.INH* CAP.INH/18 MCG (USE ORDER SET !) INH SCH (07:37)
[2016-10-09] MEDS: Mometasone/Formoter 200/5 MDI INH SCH ×2 (07:38→23:45)
--- NOTE | 2016-10-09 08:57 | PN ---
Subjective Date of Service: 10/09/16 Interval History: Patient seen this morning. Had confusion this morning, moved closer to nursing station. She has no complaints, denies SOB or wheezing. at bedside, understands concerns about safety, hoping he can take her back home. Family History: Unchanged from Admission Social History: Unchanged from Admission Past Medical History: Unchanged from Admission Objective Active Medications: Acetaminophen (Tylenol Tab*) 650 mg PO Q6H PRN Albuterol (Ventolin 2.5 Mg/3 Ml Neb.Sanjuanita*) 2.5 mg INH Q2H PRN Albuterol (Ventolin 2.5 Mg/3 Ml Neb.Sanjuanita*) 2.5 mg INH [id number] AWAKE LENORE Aspirin (Aspirin Tab*) 325 mg PO DAILY LENORE Atorvastatin Calcium (Lipitor*) 20 mg PO DAILY LENORE Carbidopa/Levodopa (Sinemet 25/100 Tab(*)) 1.5 tab PO TID LENORE Clonazepam (Klonopin Tab(*)) 1 mg PO TID LENORE Docusate Sodium (Colace Cap*) 100 mg PO BID LENORE Guaifenesin (Mucinex*) 1,200 mg PO BID LENORE Heparin Sodium (Porcine) (Heparin Vial(*)) 5,000 units SUBCUT Q8HR LENORE Ceftriaxone Sodium 1,000 mg/ (Sodium Chloride) 50 mls @ 200 mls/hr IVPB Q24H LENORE Azithromycin 500 mg/ Sodium (Chloride) 250 mls @ 250 mls/hr IVPB Q24H LENORE Magnesium Hydroxide (Milk Of Magnesia Liq*) 30 ml PO Q4H PRN Melatonin (Melatonin (Nf)) 3 mg PO BEDTIME PRN; Protocol Mometasone Furoate/Formoterol Fumar (Dulera 200/5 Mdi*) 2 puff INH BID LENORE Omeprazole (Prilosec Cap*) 20 mg PO DAILY@0600 LENORE Ondansetron HCl (Zofran Inj*) 4 mg IV Q6H PRN Polyethylene Glycol/Electrolytes (Miralax*) 17 gm PO DAILY LENORE Prednisone (Deltasone Tab*) 40 mg PO DAILY LENORE Primidone (Mysoline Tab(*)) 50 mg PO BEDTIME LENORE Quetiapine Fumarate (Seroquel Tab*) 25 mg PO BID LENORE Senna (Senokot Tab*) 1 tab PO DAILY LENORE Tiotropium [place] (Spiriva Cap.Inh*) 1 cap INH DAILY LENORE Topiramate (Topamax(*)) 25 mg PO BEDTIME LENORE Vital Signs 10/08/16 10/08/16 10/08/16 12:59 14:54 15:19 Temperature 97.3 F Pulse Rate 72 74 Respiratory 18 20 Rate Blood Pressure 88/41 (mmHg) O2 Sat by Pulse 99 98 Oximetry 10/08/16 10/09/16 23:24 07:38 Temperature 97.4 F Pulse Rate 83 82 Respiratory 16 16 Rate Blood Pressure 124/50 (mmHg) O2 Sat by Pulse 98 95 Oximetry Oxygen Devices in Use Now: Nasal Cannula - 3L Appearance: Elderly, F, sitting in chair in NAD Eyes: No Scleral Icterus Ears/Nose/Mouth/Throat: Mucous Membranes Moist Neck: NL Appearance and Movements; NL JVP Respiratory: Symmetrical Chest Expansion and Respiratory Effort, Clear to Auscultation Cardiovascular: NL Sounds; No Murmurs; No JVD, RRR Abdominal: NL Sounds; No Tenderness; No Distention Lymphatic: No Cervical Adenopathy Extremities: - - Minimal LE edema Skin: No Rash or Ulcers Neurological: - - Confused, tremor, no focal deficits Result Diagrams: 10/08/16 04:46 10/08/16 04:46 Additional Lab and Data: Lab Results 10/07/16 10/07/16 10/07/16 Range/Units 18:44 18:44 18:44 WBC 11.8 H (3.5-10.8) 10^3/ul RBC 3.35 L (4.0-5.4) 10^6/ul Hgb 9.9 L (12.0-16.0) g/dl Hct 30 L (35-47) % MCV 91 (80-97) fL MCH 29 (27-31) pg MCHC 32 (31-36) g/dl RDW 14 (10.5-15) % Plt Count 217 (150-450) 10^3/ul MPV 8 (7.4-10.4) um3 Neut % (Auto) 67.1 (38-83) % Lymph % (Auto) 20.8 L (25-47) % [place] % (Auto) 8.4 (1-9) % Eos % (Auto) 3.3 (0-6) % Baso % (Auto) 0.4 (0-2) % Absolute Neuts (auto) 7.9 H (1.5-7.7) 10^3/ul Absolute Lymphs (auto) 2.4 (1.0-4.8) 10^3/ul Absolute Monos (auto) 1.0 H (0-0.8) 10^3/ul Absolute Eos (auto) 0.4 (0-0.6) 10^3/ul Absolute Basos (auto) 0 (0-0.2) 10^3/ul Absolute Nucleated RBC 0 10^3/ul Nucleated RBC % 0 INR (Anticoag Therapy) 0.95 (0.89-1.11) APTT 24.4 L (26.0-36.3) seconds Sodium 133 (133-145) mmol/L Potassium 3.9 (3.5-5.0) mmol/L Chloride 96 L (101-111) mmol/L Carbon Dioxide 28 (22-32) mmol/L Anion Gap 9 (2-11) mmol/L BUN 20 (6-24) mg/dL Creatinine 1.12 H (0.51-0.95) mg/dL Est GFR ( Amer) 59.6 (>60) Est GFR (Non-Af Amer) 46.3 (>60) BUN/Creatinine Ratio 17.9 (8-20) Glucose 148 H (70-100) mg/dL Lactic Acid (0.5-2.0) mmol/L Calcium 8.6 (8.6-10.3) mg/dL Total Bilirubin 0.60 (0.2-1.0) mg/dL AST 27 (13-39) U/L ALT 4 L (7-52) U/L Alkaline Phosphatase 103 (34-104) U/L Troponin I 0.01 (<0.04) ng/mL C-Reactive Protein 149.65 H (< 5.00) mg/L Total Protein 7.1 (6.4-8.9) g/dL Albumin 3.3 (3.2-5.2) g/dL Globulin 3.8 (2-4) g/dL Albumin/Globulin Ratio 0.9 L (1-3) Influenza A (Rapid) (Negative) Influenza B (Rapid) (Negative) 10/07/16 10/07/16 Range/Units 18:44 19:04 WBC (3.5-10.8) 10^3/ul RBC (4.0-5.4) 10^6/ul Hgb (12.0-16.0) g/dl Hct (35-47) % MCV (80-97) fL MCH (27-31) pg MCHC (31-36) g/dl RDW (10.5-15) % Plt Count (150-450) 10^3/ul MPV (7.4-10.4) um3 Neut % (Auto) (38-83) % Lymph % (Auto) (25-47) % [place] % (Auto) (1-9) % Eos % (Auto) (0-6) % Baso % (Auto) (0-2) % Absolute Neuts (auto) (1.5-7.7) 10^3/ul Absolute Lymphs (auto) (1.0-4.8) 10^3/ul Absolute Monos (auto) (0-0.8) 10^3/ul Absolute Eos (auto) (0-0.6) 10^3/ul Absolute Basos (auto) (0-0.2) 10^3/ul Absolute Nucleated RBC 10^3/ul Nucleated RBC % INR (Anticoag Therapy) (0.89-1.11) APTT (26.0-36.3) seconds Sodium (133-145) mmol/L Potassium (3.5-5.0) mmol/L Chloride (101-111) mmol/L Carbon Dioxide (22-32) mmol/L Anion Gap (2-11) mmol/L BUN (6-24) mg/dL Creatinine (0.51-0.95) mg/dL Est GFR ( Amer) (>60) Est GFR (Non-Af Amer) (>60) BUN/Creatinine Ratio (8-20) Glucose (70-100) mg/dL Lactic Acid 1.4 (0.5-2.0) mmol/L Calcium (8.6-10.3) mg/dL Total Bilirubin (0.2-1.0) mg/dL AST (13-39) U/L ALT (7-52) U/L Alkaline Phosphatase (34-104) U/L Troponin I (<0.04) ng/mL C-Reactive Protein (< 5.00) mg/L Total Protein (6.4-8.9) g/dL Albumin (3.2-5.2) g/dL Globulin (2-4) g/dL Albumin/Globulin Ratio (1-3) Influenza A (Rapid) Negative (Negative) Influenza B (Rapid) Negative (Negative) Assess/Plan/Problems-Billing Assessment: CAP, mild COPD exacerbation in an 86 yo F with hx of CAD, CHF, COPD on home O2, Parkinson's, dementia, CKD3 - Patient Problems (1) CAP (community acquired pneumonia) Current Visit: Yes Comment: May be atypical. Continue CTX/Azithromycin. (2) COPD exacerbation Current Visit: No Comment: c/w O2 prednisone 40mg x 5 days nebulizers and inhalers (3) CHF (congestive heart failure) Current Visit: Yes Comment: Hold metoprolol. Hold Bumex for now, BPs have been improving. (4) CAD (coronary artery disease) Current Visit: Yes Comment: Continue ASA. Holding Metoprolol, Imdur due to hypotension (5) Parkinson disease Current Visit: No Comment: sinemet (6) DVT prophylaxis Current Visit: Yes Comment: HSQ Status and Disposition: Will likely need SUKHJINDER
[2016-10-09] MEDS: Atorvastatin* 20 MG TAB PO SCH (09:00)
[2016-10-09] MEDS: Carbidopa/Levodop 25/100 MG TAB(*) PO SCH ×3 (09:00→20:08)
[2016-10-09] MEDS: Aspirin TAB* 325 MG PO SCH (09:00)
[2016-10-09] MEDS: clonazePAM TAB(*) 1 MG PO SCH ×3 (09:01→20:08)
[2016-10-09] MEDS: Docusate CAP* 100 MG PO SCH ×2 (09:02→20:08)
[2016-10-09] MEDS: guaiFENesin ER TAB 600 MG PO SCH ×2 (09:02→20:08)
[2016-10-09] MEDS: predniSONE TAB* 20 MG PO SCH (09:03)
[2016-10-09] MEDS: Senna TAB PO SCH (09:03)
[2016-10-09] MEDS: Polyethylene Glycol 3350* 17 GM PACKET PO SCH (09:03)
[2016-10-09] MEDS: QUEtiapine TAB* 25 MG PO SCH ×2 (09:03→20:08)
[2016-10-09] MEDS: cefTRIAXone VIAL(*) 1,000 MG in NS 0.9% 50 ML* 50 ML IVPB SCH (20:07)
[2016-10-09] MEDS: Topiramate TAB(*) 25 MG PO SCH (20:08)
[2016-10-09] MEDS: Azithromycin IV(*) 500 MG in NS 0.9% 250 ML* 250 ML IVPB SCH (20:27)
[2016-10-09] MEDS: Primidone TAB(*) 50 MG PO SCH (20:27)
[2016-10-10] MEDS: Mometasone/Formoter 200/5 MDI INH SCH ×3 (00:58→19:24)
[2016-10-10] MEDS: Albuterol 2.5 MG/3 ML NEB.SOL* (0.083%) INH SCH ×4 (05:07→19:24)
[2016-10-10] MEDS: Heparin VIAL(*) 5000 UNITS/ML VIAL (FIVE THOUSAND) SUBCUT SCH ×3 (05:25→21:23)
[2016-10-10] MEDS: Omeprazole CAP* 20 MG PO SCH (05:25)
[2016-10-10] MEDS: Tiotropium CAP.INH* CAP.INH/18 MCG (USE ORDER SET !) INH SCH (07:16)
[2016-10-10] MEDS: clonazePAM TAB(*) 1 MG PO SCH ×3 (08:36→20:02)
[2016-10-10] MEDS: Polyethylene Glycol 3350* 17 GM PACKET PO SCH (08:36)
[2016-10-10] MEDS: predniSONE TAB* 20 MG PO SCH (08:36)
[2016-10-10] MEDS: guaiFENesin ER TAB 600 MG PO SCH ×2 (08:36→20:01)
[2016-10-10] MEDS: Senna TAB PO SCH (08:36)
[2016-10-10] MEDS: QUEtiapine TAB* 25 MG PO SCH ×2 (08:36→20:01)
[2016-10-10] MEDS: Atorvastatin* 20 MG TAB PO SCH (08:36)
[2016-10-10] MEDS: Aspirin TAB* 325 MG PO SCH (08:36)
[2016-10-10] MEDS: Carbidopa/Levodop 25/100 MG TAB(*) PO SCH ×3 (08:37→20:01)
[2016-10-10] MEDS: Docusate CAP* 100 MG PO SCH ×2 (08:38→20:02)
--- NOTE | 2016-10-10 14:33 | PN ---
Subjective Date of Service: 10/10/16 Interval History: Patient seen this morning. at bedside. Patient was sleeping soundly after eating breakfast. Awoke and reported no complaints. Denies SOB, fever or cough. Nursing states patient was heavy 2 assist just to pivot to commode this AM Family History: Unchanged from Admission Social History: Unchanged from Admission Past Medical History: Unchanged from Admission Objective Active Medications: Acetaminophen (Tylenol Tab*) 650 mg PO Q6H PRN Albuterol (Ventolin 2.5 Mg/3 Ml Neb.Sanjuanita*) 2.5 mg INH Q2H PRN Albuterol (Ventolin 2.5 Mg/3 Ml Neb.Sanjuanita*) 2.5 mg INH [id number] AWAKE LENORE Aspirin (Aspirin Tab*) 325 mg PO DAILY LENORE Atorvastatin Calcium (Lipitor*) 20 mg PO DAILY LENORE Carbidopa/Levodopa (Sinemet 25/100 Tab(*)) 1.5 tab PO TID LENORE Clonazepam (Klonopin Tab(*)) 1 mg PO TID LENORE Docusate Sodium (Colace Cap*) 100 mg PO BID LENORE Guaifenesin (Mucinex*) 1,200 mg PO BID LENORE Heparin Sodium (Porcine) (Heparin Vial(*)) 5,000 units SUBCUT Q8HR LENORE Ceftriaxone Sodium 1,000 mg/ (Sodium Chloride) 50 mls @ 200 mls/hr IVPB Q24H LENORE Azithromycin 500 mg/ Sodium (Chloride) 250 mls @ 250 mls/hr IVPB Q24H LENORE Magnesium Hydroxide (Milk Of Magnesia Liq*) 30 ml PO Q4H PRN Melatonin (Melatonin (Nf)) 3 mg PO BEDTIME PRN; Protocol Mometasone Furoate/Formoterol Fumar (Dulera 200/5 Mdi*) 2 puff INH BID LENORE Omeprazole (Prilosec Cap*) 20 mg PO DAILY@0600 LENORE Ondansetron HCl (Zofran Inj*) 4 mg IV Q6H PRN Polyethylene Glycol/Electrolytes (Miralax*) 17 gm PO DAILY LENORE Prednisone (Deltasone Tab*) 40 mg PO DAILY LENORE Primidone (Mysoline Tab(*)) 50 mg PO BEDTIME LENORE Quetiapine Fumarate (Seroquel Tab*) 25 mg PO BID LENORE Senna (Senokot Tab*) 1 tab PO DAILY LENORE Tiotropium [place] (Spiriva Cap.Inh*) 1 cap INH DAILY [facility] Topiramate (Topamax(*)) 25 mg PO BEDTIME LENORE Vital Signs 10/09/16 10/09/16 10/09/16 13:33 14:35 15:33 Temperature Pulse Rate 85 Respiratory 18 18 16 Rate Blood Pressure (mmHg) O2 Sat by Pulse 99 Oximetry 10/09/16 10/09/16 10/09/16 16:09 17:00 19:27 Temperature 97.9 F Pulse Rate 86 79 Respiratory 20 Rate Blood Pressure 142/52 (mmHg) O2 Sat by Pulse 100 99 98 Oximetry 10/09/16 10/09/16 10/09/16 19:29 20:00 20:08 Temperature Pulse Rate 79 Respiratory 20 18 18 Rate Blood Pressure (mmHg) O2 Sat by Pulse 98 Oximetry 10/09/16 10/09/16 10/10/16 22:08 23:42 03:53 Temperature 98.1 F 98.1 F Pulse Rate 80 85 Respiratory 16 16 16 Rate Blood Pressure 117/65 101/74 (mmHg) O2 Sat by Pulse 98 99 Oximetry 10/10/16 10/10/16 10/10/16 07:17 07:55 08:00 Temperature 99.0 F Pulse Rate 74 81 Respiratory 16 16 15 Rate Blood Pressure 124/58 (mmHg) O2 Sat by Pulse 94 100 Oximetry 10/10/16 10/10/16 10/10/16 08:36 10:36 13:49 Temperature Pulse Rate 85 Respiratory 16 16 16 Rate Blood Pressure (mmHg) O2 Sat by Pulse 100 Oximetry 10/10/16 14:08 Temperature Pulse Rate Respiratory 17 Rate Blood Pressure (mmHg) O2 Sat by Pulse Oximetry Oxygen Devices in Use Now: Nasal Cannula - 3L Appearance: Elderly, F, laying in bed in NAD Eyes: No Scleral Icterus Ears/Nose/Mouth/Throat: Mucous Membranes Moist Neck: NL Appearance and Movements; NL JVP Respiratory: Symmetrical Chest Expansion and Respiratory Effort, - - good air movement, no wheezing Cardiovascular: NL Sounds; No Murmurs; No JVD, RRR Abdominal: NL Sounds; No Tenderness; No Distention Lymphatic: No Cervical Adenopathy Extremities: No Edema Skin: No Rash or Ulcers Neurological: - - Alert, oriented to self only, no focal deficits Result Diagrams: 10/08/16 04:46 10/08/16 04:46 Additional Lab and Data: Lab Results 10/07/16 10/07/16 10/07/16 Range/Units 18:44 18:44 18:44 WBC 11.8 H (3.5-10.8) 10^3/ul RBC 3.35 L (4.0-5.4) 10^6/ul Hgb 9.9 L (12.0-16.0) g/dl Hct 30 L (35-47) % MCV 91 (80-97) fL MCH 29 (27-31) pg MCHC 32 (31-36) g/dl RDW 14 (10.5-15) % Plt Count 217 (150-450) 10^3/ul MPV 8 (7.4-10.4) um3 Neut % (Auto) 67.1 (38-83) % Lymph % (Auto) 20.8 L (25-47) % [place] % (Auto) 8.4 (1-9) % Eos % (Auto) 3.3 (0-6) % Baso % (Auto) 0.4 (0-2) % Absolute Neuts (auto) 7.9 H (1.5-7.7) 10^3/ul Absolute Lymphs (auto) 2.4 (1.0-4.8) 10^3/ul Absolute Monos (auto) 1.0 H (0-0.8) 10^3/ul Absolute Eos (auto) 0.4 (0-0.6) 10^3/ul Absolute Basos (auto) 0 (0-0.2) 10^3/ul Absolute Nucleated RBC 0 10^3/ul Nucleated RBC % 0 INR (Anticoag Therapy) 0.95 (0.89-1.11) APTT 24.4 L (26.0-36.3) seconds Sodium 133 (133-145) mmol/L Potassium 3.9 (3.5-5.0) mmol/L Chloride 96 L (101-111) mmol/L Carbon Dioxide 28 (22-32) mmol/L Anion Gap 9 (2-11) mmol/L BUN 20 (6-24) mg/dL Creatinine 1.12 H (0.51-0.95) mg/dL Est GFR ( Amer) 59.6 (>60) Est GFR (Non-Af Amer) 46.3 (>60) BUN/Creatinine Ratio 17.9 (8-20) Glucose 148 H (70-100) mg/dL Lactic Acid (0.5-2.0) mmol/L Calcium 8.6 (8.6-10.3) mg/dL Total Bilirubin 0.60 (0.2-1.0) mg/dL AST 27 (13-39) U/L ALT 4 L (7-52) U/L Alkaline Phosphatase 103 (34-104) U/L Troponin I 0.01 (<0.04) ng/mL C-Reactive Protein 149.65 H (< 5.00) mg/L Total Protein 7.1 (6.4-8.9) g/dL Albumin 3.3 (3.2-5.2) g/dL Globulin 3.8 (2-4) g/dL Albumin/Globulin Ratio 0.9 L (1-3) Influenza A (Rapid) (Negative) Influenza B (Rapid) (Negative) 10/07/16 10/07/16 Range/Units 18:44 19:04 WBC (3.5-10.8) 10^3/ul RBC (4.0-5.4) 10^6/ul Hgb (12.0-16.0) g/dl Hct (35-47) % MCV (80-97) fL MCH (27-31) pg MCHC (31-36) g/dl RDW (10.5-15) % Plt Count (150-450) 10^3/ul MPV (7.4-10.4) um3 Neut % (Auto) (38-83) % Lymph % (Auto) (25-47) % [place] % (Auto) (1-9) % Eos % (Auto) (0-6) % Baso % (Auto) (0-2) % Absolute Neuts (auto) (1.5-7.7) 10^3/ul Absolute Lymphs (auto) (1.0-4.8) 10^3/ul Absolute Monos (auto) (0-0.8) 10^3/ul Absolute Eos (auto) (0-0.6) 10^3/ul Absolute Basos (auto) (0-0.2) 10^3/ul Absolute Nucleated RBC 10^3/ul Nucleated RBC % INR (Anticoag Therapy) (0.89-1.11) APTT (26.0-36.3) seconds Sodium (133-145) mmol/L Potassium (3.5-5.0) mmol/L Chloride (101-111) mmol/L Carbon Dioxide (22-32) mmol/L Anion Gap (2-11) mmol/L BUN (6-24) mg/dL Creatinine (0.51-0.95) mg/dL Est GFR ( Amer) (>60) Est GFR (Non-Af Amer) (>60) BUN/Creatinine Ratio (8-20) Glucose (70-100) mg/dL Lactic Acid 1.4 (0.5-2.0) mmol/L Calcium (8.6-10.3) mg/dL Total Bilirubin (0.2-1.0) mg/dL AST (13-39) U/L ALT (7-52) U/L Alkaline Phosphatase (34-104) U/L Troponin I (<0.04) ng/mL C-Reactive Protein (< 5.00) mg/L Total Protein (6.4-8.9) g/dL Albumin (3.2-5.2) g/dL Globulin (2-4) g/dL Albumin/Globulin Ratio (1-3) Influenza A (Rapid) Negative (Negative) Influenza B (Rapid) Negative (Negative) Assess/Plan/Problems-Billing Assessment: CAP, mild COPD exacerbation in an 86 yo F with hx of CAD, CHF, COPD on home O2, Parkinson's, dementia, CKD3 - Patient Problems (1) CAP (community acquired pneumonia) Current Visit: Yes Comment: May be atypical. Continue CTX, Azithromycin (Day 3 /3) (2) COPD exacerbation Current Visit: No Comment: c/w O2 prednisone 40mg x 5 days nebulizers and inhalers (3) CHF (congestive heart failure) Current Visit: Yes Comment: Hold metoprolol. Hold Bumex for now, BPs have been improving. (4) CAD (coronary artery disease) Current Visit: Yes Comment: Continue ASA. Holding Metoprolol, Imdur due to hypotension (5) Parkinson disease Current Visit: No Comment: sinemet (6) DVT prophylaxis Current Visit: Yes Comment: HSQ Status and Disposition: Will likely need SUKHJINDER
[2016-10-10] MEDS: Primidone TAB(*) 50 MG PO SCH (20:01)
[2016-10-10] MEDS: cefTRIAXone VIAL(*) 1,000 MG in NS 0.9% 50 ML* 50 ML IVPB SCH (20:02)
[2016-10-10] MEDS: Topiramate TAB(*) 25 MG PO SCH (20:02)
[2016-10-10] MEDS: Azithromycin IV(*) 500 MG in NS 0.9% 250 ML* 250 ML IVPB SCH (20:50)
[2016-10-11] MEDS: Albuterol 2.5 MG/3 ML NEB.SOL* (0.083%) INH SCH ×3 (01:37→14:15)
[2016-10-11] MEDS: Heparin VIAL(*) 5000 UNITS/ML VIAL (FIVE THOUSAND) SUBCUT SCH ×4 (05:09→21:59)
[2016-10-11] MEDS: Omeprazole CAP* 20 MG PO SCH (05:09)
[2016-10-11] MEDS: Mometasone/Formoter 200/5 MDI INH SCH ×2 (08:07→19:58)
[2016-10-11] MEDS: Tiotropium CAP.INH* CAP.INH/18 MCG (USE ORDER SET !) INH SCH (08:07)
[2016-10-11] MEDS: Senna TAB PO SCH (09:13)
[2016-10-11] MEDS: predniSONE TAB* 20 MG PO SCH (09:13)
[2016-10-11] MEDS: Aspirin TAB* 325 MG PO SCH (09:13)
[2016-10-11] MEDS: QUEtiapine TAB* 25 MG PO SCH ×4 (09:13→23:07)
[2016-10-11] MEDS: clonazePAM TAB(*) 1 MG PO SCH ×5 (09:14→23:06)
[2016-10-11] MEDS: guaiFENesin ER TAB 600 MG PO SCH ×4 (09:14→23:07)
[2016-10-11] MEDS: Docusate CAP* 100 MG PO SCH ×3 (09:15→21:58)
[2016-10-11] MEDS: Carbidopa/Levodop 25/100 MG TAB(*) PO SCH ×5 (09:15→23:06)
[2016-10-11] MEDS: Polyethylene Glycol 3350* 17 GM PACKET PO SCH (09:16)
[2016-10-11] MEDS: Atorvastatin* 20 MG TAB PO SCH (09:34)
[2016-10-11] MEDS ORDERED: clonazePAM TAB(*) 1 MG PO PRN (12:18)
[2016-10-11] MEDS ORDERED: Haloperidol TAB* 1 MG PO PRN ×2 (19:22→19:28)
[2016-10-11] MEDS: cefTRIAXone VIAL(*) 1,000 MG in NS 0.9% 50 ML* 50 ML IVPB SCH (19:43)
[2016-10-11] MEDS ORDERED: Haloperidol INJ IV/IM* 5 MG/ML AMP IV SLOW PU PRN (20:35)
[2016-10-11] MEDS: Topiramate TAB(*) 25 MG PO SCH ×2 (21:38→21:59)
[2016-10-11] MEDS: Primidone TAB(*) 50 MG PO SCH ×2 (21:38→21:59)
[2016-10-11] MEDS ORDERED: Carbidopa/Levodop 25/100 MG TAB(*) ONE (22:48)
[2016-10-12] MEDS: Omeprazole CAP* 20 MG PO SCH (05:25)
[2016-10-12] MEDS: Heparin VIAL(*) 5000 UNITS/ML VIAL (FIVE THOUSAND) SUBCUT SCH (05:25)
[2016-10-12] MEDS: Atorvastatin* 20 MG TAB PO SCH (09:16)
[2016-10-12] MEDS: Aspirin TAB* 325 MG PO SCH (09:16)
[2016-10-12] MEDS: clonazePAM TAB(*) 1 MG PO SCH (09:16)
[2016-10-12] MEDS: Docusate CAP* 100 MG PO SCH (09:17)
[2016-10-12] MEDS: Senna TAB PO SCH (09:17)
[2016-10-12] MEDS: Polyethylene Glycol 3350* 17 GM PACKET PO SCH (09:18)
[2016-10-12] MEDS: predniSONE TAB* 20 MG PO SCH (09:18)
[2016-10-12] MEDS: Carbidopa/Levodop 25/100 MG TAB(*) PO SCH (09:18)
[2016-10-12] MEDS: guaiFENesin ER TAB 600 MG PO SCH (09:18)
[2016-10-12] MEDS: QUEtiapine TAB* 25 MG PO SCH (09:29)
[2016-10-12] MEDS: Tiotropium CAP.INH* CAP.INH/18 MCG (USE ORDER SET !) INH SCH (09:50)
[2016-10-12] MEDS: Mometasone/Formoter 200/5 MDI INH SCH (09:51)
--- NOTE | 2016-10-12 10:36 | DS ---
DISCHARGE SUMMARY: DATE OF ADMISSION: 10/07/16 DATE OF DISCHARGE: 10/12/16 PRIMARY CARE PHYSICIAN: Dr. Sahu. PRINCIPAL DISCHARGE DIAGNOSES: 1. Chronic obstructive pulmonary disease exacerbation. 2. Community-acquired pneumonia. SECONDARY DIAGNOSES: 1. History of congestive heart failure. 2. Coronary artery disease. 3. Chronic kidney disease 3. 4. Parkinsonism. 5. Dementia. 6. Normocytic anemia. DISCHARGE MEDICATION REGIMEN: 1. Advair 1 puff inhaled 3 times daily. 2. Klonopin 1 mg by mouth 3 times daily as needed for anxiety. 3. MiraLAX 1 packet by mouth daily. 4. Imdur 30 mg by mouth daily. 5. Colace 100 mg by mouth 2 times daily. 6. Multivitamin 1 tablet by mouth daily. 7. Calcium and phosphorus with vitamin D 1 chewable by mouth daily. 8. Aspirin 325 mg by mouth daily. 9. DuoNeb one dose inhaled 2 times daily as needed for shortness of breath or wheezing. 10. Topamax 25 mg by mouth at bedtime. 11. Primidone 50 mg by mouth at bedtime. 12. Sinemet 1.5 tablets by mouth 3 times daily. 13. Spiriva 1 inhalation daily. 14. Seroquel 25 mg by mouth 2 times daily. 15. Metoprolol tartrate 12.5 mg by mouth daily. 16. Atorvastatin 20 mg by mouth daily. 17. Haldol 4 mg by mouth every 6 hours as needed for agitation. Discontinued medication on this admission was Bumex. STUDIES DONE DURING HOSPITALIZATION: Chest x-ray, impression: Suspect mild interstitial congestion . HISTORY OF PRESENT ILLNESS AND HOSPITAL SUMMARY: Please see the full history and physical by Dr. Fr cordelia Robb for full details. Briefly, Ms. Bach is an 86- year-old female with dementia, who p resents to the hospital with fever, cough, and shortness of breath. Despite a relatively benign kris st x-ray, it was felt that the patient likely had atypical pneumonia. She received a dose of Levaqu in in the emergency department and was continued on ceftriaxone and azithromycin. She completed a f ull course of antibiotics in the hospital. She was also treated for COPD exacerbation with steroids and nebulizers with improvement in her symptoms. She was weaned back down to her home level of 2 li ters of oxygen. The patient was significantly weak during her hospital stay and PT evaluation felt that she would benefit from subacute rehab. She will be transferred to [facility]. The patient had s ome hypotension throughout the hospitalization. Blood pressure medications were initially held. Ho wever, her pressures improved the day prior to discharge. She will be restarted on her metoprolol a nd Imdur. We will continue to hold her diuretic for now. This can be restarted over the next few d ays. PHYSICAL EXAMINATION: Elderly female lying in bed in no apparent distress. Nasal cannula in place. Lungs are clear to auscultation bilaterally. No wheezes, rales or rhonchi. Cardiovascul ar: Regular rate and rhythm. S1, S2 present. No murmurs, gallops or rubs. Abdomen is obese, soft , nontender, nondistended. Bowel sounds positive. No cyanosis, clubbing or edema. TIME SPENT: Total time spent on this discharge, 40 minutes. This is a summary of the hospitalization. Please see the full medical record for details. [id number]/[facility] #: [id number]
[2016-10-12 10:44] VITALS: BP 135/63
== END 2016-10-12 11:00 | DRG 190 ==
LOC: ED 18:28 → MEDTELE 21:14 → OBSVTOIN 10-08 12:24 → MEDTELE 10-09 08:00
PROVIDERS: ADMIT Hospitalist; ATTEND Hospitalist
DX: J44.0 Chronic obstructive pulmonary disease with (acute) lower respiratory infection (principal); J18.9 Pneumonia, unspecified organism; G20 Parkinson's disease; I50.9 Heart failure, unspecified; Z99.81 Dependence on supplemental oxygen; F02.80 Dementia in other diseases classified elsewhere, unspecified severity, without behavioral disturbance, psychotic disturbance, mood disturbance, and anxiety; I25.110 Atherosclerotic heart disease of native coronary artery with unstable angina pectoris; J44.1 Chronic obstructive pulmonary disease with (acute) exacerbation; N18.3 Chronic kidney disease, stage 3 (moderate); E78.5 Hyperlipidemia, unspecified; D64.9 Anemia, unspecified; Z88.0 Allergy status to penicillin; Z98.61 Coronary angioplasty status; Z79.82 Long term (current) use of aspirin
CPT/HCPCS: 36415; 71010; 80048; 80053; 81003; 83605; 83880; 84484; 85025; 85610; 85730; 86140; 87040; 87502; 87899; 93005; 94640; 94760; A9270-GY; J0456; J0696; J1630; J1644; J2930; J7512

== ENCOUNTER 2016-10-17 18:29 | Inpatient (IN) | payer MEDICARE, OTHER ==
[2016-10-17] MEDS ORDERED: Acetaminophen SUPP* 650 MG SUPP PR ONE (18:50)
[2016-10-17] MEDS ORDERED: cefTRIAXone VIAL(*) 1,000 MG in NS 0.9% 50 ML* 50 ML IVPB ONE (18:51)
[2016-10-17] MEDS ORDERED: Levofloxacin TAB* 250 MG PO ONE (18:52)
[2016-10-17 18:56] LABS: Hematocrit 27 % (35-47); Hemoglobin 8.8 g/dl (12.0-16.0); Mean Corpuscular HGB Conc 32 g/dl (31-36); Mean Corpuscular Hemoglobin 29 pg (27-31); Mean Corpuscular Volume 91 fL (80-97); Mean Platelet Volume 8 um3 (7.4-10.4); Red Cell Distribution Width 15 % (10.5-15); White Blood Count 12.4 10^3/ul (3.5-10.8)
[2016-10-17 18:56] LABS: EPAP 5; FIO2 100; IPAP 10; Resp Rate 16
[2016-10-17 18:59] LABS: PCO2 Arterial 38 mmHg (35-45)
[2016-10-17 19:08] LABS: Albumin 3.2 g/dL (3.2-5.2); BUN/Creatinine Ratio 14.3 (8-20); C Reactive Protein 109.72 mg/L (< 5.00); Calcium 8.5 mg/dL (8.6-10.3); EGFR African American 83.1 (>60); EGFR Non-African American 64.6 (>60); Globulin 3.6 g/dL (2-4); Potassium 4.2 mmol/L (3.5-5.0); Total Bilirubin 0.5 mg/dL (0.2-1.0); Total Protein 6.8 g/dL (6.4-8.9)
--- NOTE | 2016-10-17 19:10 | RAD ---
Indication: Shortness of breath. History of congestive heart failure and chronic obstructive pulmonary disease. Post LEFT breast mastectomy. Comparison: October 07, 2016 Technique: Upright AP 1850 hours Report: Patchy bilateral alveolar consolidation most confluent in the LEFT lower lung zone. Negative for pleural effusion or pneumothorax. Mild cardiomegaly. Unremarkable central pulmonary vasculature and mediastinal contours. Advanced bilateral shoulder arthropathy. IMPRESSION: Bilateral pulmonary consolidation concerning for pneumonia most prominent at the LEFT lung base. No compelling evidence for pulmonary edema.
[2016-10-17 19:13] LABS: Troponin I 0.04 ng/mL (<0.04)
[2016-10-17] MEDS ORDERED: Vancomycin(*) 1,000 MG in NS 0.9% 250 ML* 250 ML IVPB ONE (19:13)
[2016-10-17] MEDS ORDERED: Levofloxacin 750 MG IVPREMIX(* 750 MG/150 ML BAG IVPB ONE (19:37)
[2016-10-17 20:32] LABS: Urine Bacteria Absent (Absent); Urine Bilirubin Negative (Negative); Urine Glucose Negative (Negative); Urine Nitrite Negative (Negative)
[2016-10-17] MEDS ORDERED: Levofloxacin 500 MG IVPREMIX(* 500 MG/100 ML BAG IVPB SCH (21:00)
--- NOTE | 2016-10-17 21:52 | ED ---
Danny Sparrow Matthew, scribed for Geovanny Petty MD on 10/17/16 at 1848 . Shortness of Breath - HPI Summary HPI Summary: An 86 y/o female presents to the ED with SOB since this morning. Associated symptoms include fever and confusion. Unable to obtain good hx from the patient since she is confused. She had two DuoNebs AIRLINE MECHANIC. Hx includes COPD and CHF. Per EMS, the patient has AMS. Currently, the patient is alert, but no responding to questions. As a result, a complete HPI was unable to be obtained. - History of Current Complaint Time Seen by Provider: 10/17/16 18:40 Hx Obtained From: Patient Onset/Duration: Lasting Hours, Still Present Timing: Constant Current Severity: Severe Dyspnea At: Rest Associated Signs & Symptoms: Fever - Allergy/Home Medications Allergies/Adverse Reactions: Allergies Allergy/AdvReac Type Severity Reaction Status Date / Time Penicillins Allergy Unknown Verified 01/19/16 10:48 Reaction Details Home Medications: Home Medications FLUoxetine CAP* [PROzac CAP*] 20 mg PO BID 10/17/16 [History Confirmed 10/17/16] QUEtiapine TAB* [SEROquel TAB*] 25 mg PO DAILY PRN 10/17/16 [History Confirmed 10/17/16] PMH/Surg Hx/FS Hx/Imm Hx Cardiovascular History: Reports: Hx Congestive Heart Failure, Hx Coronary Artery Disease, Hx Hypertension Respiratory History: Reports: Hx Asthma, Hx Chronic Obstructive Pulmonary Disease (COPD), Other Respiratory Problems/Disorders - 2.5L Home O2 Sensory History: Reports: Hx Contacts or Glasses Opthamlomology History: Reports: Hx Contacts or Glasses Neurological History: Reports: Hx Dementia, Other Neuro Impairments/Disorders - Parkinson's Psychiatric History: Reports: Hx Anxiety - Cancer History Cancer Type, Location and Year: BREAST CANCER Hx Radiation Therapy: Yes Hx Palliative Cancer Treatment: Yes - LEFT MASECTOMY - Surgical History Surgery Procedure, Year, and Place: LUMPECTOMY & MASECTOMY LEFT BREAST. CATARACT SURGERY Hx Anesthesia Reactions: No - Immunization History Date of Influenza Vaccine: 06/12/13 Infectious Disease History: Denies: Traveled Outside the [place] in Last 30 Days - Family History Known Family History: Positive: Hypertension - Social History Alcohol Use: None Substance Use Type: Reports: None Hx Tobacco Use: No Smoking Status (MU): Never Smoked Tobacco Review of Systems Positive: Fever Positive: Shortness Of Breath All Other Systems Reviewed And Are Negative: No - Comments Additional Review of Systems Comments: A complete ROS is unable to be obtained, because the patient is not responding to questions. Physical Exam - Summary Physical Exam Summary: VITAL SIGNS: Reviewed. GENERAL: Patient is an obese female with some distress secondary to the shortness of breath. She is confused. She is a BiPap from EMS. HEAD AND FACE: Normocephalic and atraumatic. EYES: PERRLA, EOMI x 2 EARS: Hearing grossly intact. MOUTH: Dry oral mucosa. NECK: Supple, trachea is midline, no adenopathy, no JVD, no carotid bruit. CHEST: Symmetric, No intercostal or abdominal retraction, LUNGS: Diffuse bilateral crackles decreased breath sounds. CVS: RRR,, S1 and S2 present, no murmurs or gallops appreciated. ABDOMEN: Soft, non-tender. No signs of distention. Positive BS. No rebound, no guarding, and no masses palpated. EXTREMITIES: FROM in all major joints, no edema, no cyanosis or clubbing. NEURO: confused, somnolent but arausable SKIN: Dry and warm Triage Information Reviewed: Yes Vital Signs On Initial Exam: Initial Vitals Temp Pulse Resp BP Pulse Ox 102.8 F 108 35 151/100 99 10/17/16 18:36 10/17/16 18:36 10/17/16 18:36 10/17/16 18:36 10/17/16 18:36 Vital Signs Reviewed: Yes Diagnostics - Vital Signs Vital Signs Temp Pulse Resp BP Pulse Ox 10/17/16 21:00 102.6 F 96 16 121/60 95 10/17/16 20:32 102.6 F 96 129/69 97 10/17/16 19:00 104 99 10/17/16 18:48 106 99 10/17/16 18:36 102.8 F 108 35 151/100 99 - Laboratory Lab Results: Lab Results 10/17/16 10/17/16 10/17/16 Range/Units 18:36 18:36 18:36 WBC 12.4 H (3.5-10.8) 10^3/ul RBC 3.00 L (4.0-5.4) 10^6/ul Hgb 8.8 L (12.0-16.0) g/dl Hct 27 L (35-47) % MCV 91 (80-97) fL MCH 29 (27-31) pg MCHC 32 (31-36) g/dl RDW 15 (10.5-15) % Plt Count 191 (150-450) 10^3/ul MPV 8 (7.4-10.4) um3 Neut % (Auto) 83.0 (38-83) % Lymph % (Auto) 8.0 L (25-47) % [place] % (Auto) 7.0 (1-9) % Eos % (Auto) 1.4 (0-6) % Baso % (Auto) 0.6 (0-2) % Absolute Neuts (auto) 10.3 H (1.5-7.7) 10^3/ul Absolute Lymphs (auto) 1.0 (1.0-4.8) 10^3/ul Absolute Monos (auto) 0.9 H (0-0.8) 10^3/ul Absolute Eos (auto) 0.2 (0-0.6) 10^3/ul Absolute Basos (auto) 0.1 (0-0.2) 10^3/ul Absolute Nucleated RBC 0.01 10^3/ul Nucleated RBC % 0.1 INR (Anticoag Therapy) 1.01 (0.89-1.11) APTT 19.0 L (26.0-36.3) seconds Fibrinogen 439 H (110.8-404.3) mg/dL Patient Temperature ABG pH (7.35-7.45) ABG pCO2 (35-45) mmHg ABG pO2 (80-100) mmHg ABG HCO3 (19-31) mmol/L ABG O2 Saturation (95-98) % ABG Base Excess (-2.0-2.0) Respiration Rate Ventilator Type Vent Mode FiO2 Inspiratory Time PEEP Pressure Support Pressure Control EPAP IPAP BiPAP Sodium 136 (133-145) mmol/L Potassium 4.2 (3.5-5.0) mmol/L Chloride 106 (101-111) mmol/L Carbon Dioxide 24 (22-32) mmol/L Anion Gap 6 (2-11) mmol/L BUN 12 (6-24) mg/dL Creatinine 0.84 (0.51-0.95) mg/dL Est GFR ( Amer) 83.1 (>60) Est GFR (Non-Af Amer) 64.6 (>60) BUN/Creatinine Ratio 14.3 (8-20) Glucose 181 H (70-100) mg/dL Lactic Acid (0.5-2.0) mmol/L Calcium 8.5 L (8.6-10.3) mg/dL Total Bilirubin 0.50 (0.2-1.0) mg/dL AST 33 (13-39) U/L ALT 10 (7-52) U/L Alkaline Phosphatase 123 H (34-104) U/L Total Creatine Kinase 64 (10-223) U/L Troponin I 0.04 H* (<0.04) ng/mL C-Reactive Protein 109.72 H (< 5.00) mg/L B-Natriuretic Peptide ( - 100) pg/mL Total Protein 6.8 (6.4-8.9) g/dL Albumin 3.2 (3.2-5.2) g/dL Globulin 3.6 (2-4) g/dL Albumin/Globulin Ratio 0.9 L (1-3) Urine Color Urine Appearance Urine pH (5-9) Ur Specific Dix (1.010-1.030) Urine Protein (Negative) Urine Ketones (Negative) Urine Blood (Negative) Urine Nitrate (Negative) Urine Bilirubin (Negative) Urine Urobilinogen (Negative) Ur Leukocyte Esterase (Negative) Urine WBC (Auto) (Absent) Urine RBC (Auto) (Absent) Ur Squamous Epith Cells (Absent) Urine Bacteria (Absent) Urine Glucose (Negative) 10/17/16 10/17/16 10/17/16 Range/Units 18:36 18:36 18:50 WBC (3.5-10.8) 10^3/ul RBC (4.0-5.4) 10^6/ul Hgb (12.0-16.0) g/dl Hct (35-47) % MCV (80-97) fL MCH (27-31) pg MCHC (31-36) g/dl RDW (10.5-15) % Plt Count (150-450) 10^3/ul MPV (7.4-10.4) um3 Neut % (Auto) (38-83) % Lymph % (Auto) (25-47) % [place] % (Auto) (1-9) % Eos % (Auto) (0-6) % Baso % (Auto) (0-2) % Absolute Neuts (auto) (1.5-7.7) 10^3/ul Absolute Lymphs (auto) (1.0-4.8) 10^3/ul Absolute Monos (auto) (0-0.8) 10^3/ul Absolute Eos (auto) (0-0.6) 10^3/ul Absolute Basos (auto) (0-0.2) 10^3/ul Absolute Nucleated RBC 10^3/ul Nucleated RBC % INR (Anticoag Therapy) (0.89-1.11) APTT (26.0-36.3) seconds Fibrinogen (110.8-404.3) mg/dL Patient Temperature Not Reportable ABG pH 7.43 (7.35-7.45) ABG pCO2 38 (35-45) mmHg ABG pO2 310 H (80-100) mmHg ABG HCO3 25.6 (19-31) mmol/L ABG O2 Saturation 100.3 H (95-98) % ABG Base Excess 0.9 (-2.0-2.0) Respiration Rate 16 Ventilator Type Not Reportable Vent Mode Not Reportable FiO2 100 Inspiratory Time Not Reportable PEEP Not Reportable Pressure Support Not Reportable Pressure Control Not Reportable EPAP 5 IPAP 10 BiPAP x Sodium (133-145) mmol/L Potassium (3.5-5.0) mmol/L Chloride (101-111) mmol/L Carbon Dioxide (22-32) mmol/L Anion Gap (2-11) mmol/L BUN (6-24) mg/dL Creatinine (0.51-0.95) mg/dL Est GFR ( Amer) (>60) Est GFR (Non-Af Amer) (>60) BUN/Creatinine Ratio (8-20) Glucose (70-100) mg/dL Lactic Acid 1.4 (0.5-2.0) mmol/L Calcium (8.6-10.3) mg/dL Total Bilirubin (0.2-1.0) mg/dL AST (13-39) U/L ALT (7-52) U/L Alkaline Phosphatase (34-104) U/L Total Creatine Kinase (10-223) U/L Troponin I (<0.04) ng/mL C-Reactive Protein (< 5.00) mg/L B-Natriuretic Peptide 221 H ( - 100) pg/mL Total Protein (6.4-8.9) g/dL Albumin (3.2-5.2) g/dL Globulin (2-4) g/dL Albumin/Globulin Ratio (1-3) Urine Color Urine Appearance Urine pH (5-9) Ur Specific Dix (1.010-1.030) Urine Protein (Negative) Urine Ketones (Negative) Urine Blood (Negative) Urine Nitrate (Negative) Urine Bilirubin (Negative) Urine Urobilinogen (Negative) Ur Leukocyte Esterase (Negative) Urine WBC (Auto) (Absent) Urine RBC (Auto) (Absent) Ur Squamous Epith Cells (Absent) Urine Bacteria (Absent) Urine Glucose (Negative) 10/17/16 Range/Units 20:15 WBC (3.5-10.8) 10^3/ul RBC (4.0-5.4) 10^6/ul Hgb (12.0-16.0) g/dl Hct (35-47) % MCV (80-97) fL MCH (27-31) pg MCHC (31-36) g/dl RDW (10.5-15) % Plt Count (150-450) 10^3/ul MPV (7.4-10.4) um3 Neut % (Auto) (38-83) % Lymph % (Auto) (25-47) % [place] % (Auto) (1-9) % Eos % (Auto) (0-6) % Baso % (Auto) (0-2) % Absolute Neuts (auto) (1.5-7.7) 10^3/ul Absolute Lymphs (auto) (1.0-4.8) 10^3/ul Absolute Monos (auto) (0-0.8) 10^3/ul Absolute Eos (auto) (0-0.6) 10^3/ul Absolute Basos (auto) (0-0.2) 10^3/ul Absolute Nucleated RBC 10^3/ul Nucleated RBC % INR (Anticoag Therapy) (0.89-1.11) APTT (26.0-36.3) seconds Fibrinogen (110.8-404.3) mg/dL Patient Temperature ABG pH (7.35-7.45) ABG pCO2 (35-45) mmHg ABG pO2 (80-100) mmHg ABG HCO3 (19-31) mmol/L ABG O2 Saturation (95-98) % ABG Base Excess (-2.0-2.0) Respiration Rate Ventilator Type Vent Mode FiO2 Inspiratory Time PEEP Pressure Support Pressure Control EPAP IPAP BiPAP Sodium (133-145) mmol/L Potassium (3.5-5.0) mmol/L Chloride (101-111) mmol/L Carbon Dioxide (22-32) mmol/L Anion Gap (2-11) mmol/L BUN (6-24) mg/dL Creatinine (0.51-0.95) mg/dL Est GFR ( Amer) (>60) Est GFR (Non-Af Amer) (>60) BUN/Creatinine Ratio (8-20) Glucose (70-100) mg/dL Lactic Acid (0.5-2.0) mmol/L Calcium (8.6-10.3) mg/dL Total Bilirubin (0.2-1.0) mg/dL AST (13-39) U/L ALT (7-52) U/L Alkaline Phosphatase (34-104) U/L Total Creatine Kinase (10-223) U/L Troponin I (<0.04) ng/mL C-Reactive Protein (< 5.00) mg/L B-Natriuretic Peptide ( - 100) pg/mL Total Protein (6.4-8.9) g/dL Albumin (3.2-5.2) g/dL Globulin (2-4) g/dL Albumin/Globulin Ratio (1-3) Urine Color Yellow Urine Appearance Clear Urine pH 6.0 (5-9) Ur Specific Dix 1.014 (1.010-1.030) Urine Protein Negative (Negative) Urine Ketones Negative (Negative) Urine Blood 2+ H (Negative) Urine Nitrate Negative (Negative) Urine Bilirubin Negative (Negative) Urine Urobilinogen Negative (Negative) Ur Leukocyte Esterase 2+ H (Negative) Urine WBC (Auto) 2+(11-20/hpf) H (Absent) Urine RBC (Auto) 3+(>10/hpf) H (Absent) Ur Squamous Epith Cells Present H (Absent) Urine Bacteria Absent (Absent) Urine Glucose Negative (Negative) Result Diagrams: 03/19/17 18:36 10/17/16 18:36 Lab Statement: Any lab studies that have been ordered have been reviewed, and results considered in the medical decision making process. - Radiology CXR Xray Interpretation: Positive (See Comments) - IMPRESSION: Bilateral pulmonary consolidation concerning for pneumonia most prominent at the LEFT lung base. No compelling evidence for pulmonary edema. Radiology Interpretation Completed By: Radiologist - EKG 21:16 Cardiac Rate: NL - 95 bpm EKG Rhythm: Sinus Rhythm EKG Interpretation: No ST elevations Course/Dx - Course Assessment/Plan: . An 86 y/o female presents to the ED with SOB since this morning. Associated symptoms include fever and confusion. Unable to obtain good hx from the patient since she is confused. She had two DuoNebs AIRLINE MECHANIC. Hx includes COPD and CHF. Per EMS, the patient has AMS. Currently, the patient is alert, but no responding to questions. As a result, a complete HPI was unable to be obtained. Blood work shows WBC of 12.4, chronic anemia, troponin of 0.04 , BNP of 221. Calcium 8.5. CXR shows bilateral pulmonary consolidation concerning for pneumonia most prominent at the LEFT lung base. No compelling evidence for pulmonary edema. In the ED course, the patient was placed on a Bipap since the patient is DNI and DNR. Th patient was started on IV fluids, I did not started at 30 cc/kg since patient is hypertensive. Levaquin, and vancomycin was started, as well as Tylenol for the fever. At this time, I discussed my findings and test result with Dr. Gore who will admit the patient. She will be admitted for pneumonia, sepsis, and AMS, She continues to be in a BiPap. It seems that she is improving since she is more alert. - Diagnoses Provider Diagnoses: Pneumonia, Sepsis, Altered mental status - Physician Notifications Discussed Care of Patient With: Dr. Gore (Hospitalist) at 19:50 -- Notified of patient's history and will admit the patient. - Critical Care Time Critical Care Time: 30-74 min Discharge - Discharge Plan Condition: Stable Disposition: ADMITTED TO [facility] Referrals: Darcie Smith MD [Primary Care Provider] - The documentation as recorded by the Danny ramírez Matthew accurately reflects the service I personally performed and the decisions made by me, Petty, Geovanny, MD.
[2016-10-17] MEDS ORDERED: QUEtiapine TAB* 25 MG PO PRN (22:30)
[2016-10-18] MEDS: clonazePAM TAB(*) 1 MG PO PRN (00:35)
[2016-10-18] MEDS ORDERED: NS 0.9% 1000 ML* 1,000 ML IV SCH (01:00)
[2016-10-18] MEDS ORDERED: Vancomycin per Pharmacy* NOTE FOLLOW UP PRN (04:41)
[2016-10-18] MEDS: Vancomycin(*) 750 MG in NS 0.9% 250 ML* 250 ML IVPB SCH ×2 (05:54→16:35)
[2016-10-18] MEDS: Heparin VIAL(*) 5000 UNITS/ML VIAL (FIVE THOUSAND) SUBCUT SCH ×3 (06:06→21:30)
[2016-10-18 06:11] LABS: Hematocrit 31 % (35-47); Hemoglobin 9.7 g/dl (12.0-16.0); Mean Corpuscular HGB Conc 32 g/dl (31-36); Mean Corpuscular Hemoglobin 30 pg (27-31); Mean Corpuscular Volume 94 fL (80-97); Mean Platelet Volume 8 um3 (7.4-10.4); Red Blood Count 3.27 10^6/ul (4.0-5.4); Red Cell Distribution Width 16 % (10.5-15); White Blood Count 18.7 10^3/ul (3.5-10.8)
[2016-10-18 06:28] LABS: EGFR African American 77.7 (>60); EGFR Non-African American 60.4 (>60)
[2016-10-18] MEDS: Albuterol 2.5 MG/3 ML NEB.SOL* (0.083%) INH PRN ×2 (06:31→17:50)
[2016-10-18 06:38] LABS: Troponin I 0.07 ng/mL (<0.04)
[2016-10-18] MEDS ORDERED: Furosemide IV* 10 MG/ML VIAL (40 MG) IV SLOW PU ONE (06:50)
--- NOTE | 2016-10-18 07:29 | PN ---
Progress Note - Progress Note Note: Called to see patient. Labored breathing with coarse breath sounds. CXR checked. New RUL, RML infiltrates. Suspect aspiration pneumonia. Less likely CHF. Lasix 40 mg IV given. Clindamycin 600 mg IV q6h added. Transferred to ICU. Discussed with family.
--- NOTE | 2016-10-18 07:48 | RAD ---
HISTORY: Respiratory difficulty COMPARISONS: October 17, 2016 VIEWS:1: Single frontal portable view of the chest at 6:40 AM FINDINGS: LINES AND TUBES: None. CARDIOMEDIASTINAL SILHOUETTE: The cardiomediastinal silhouette is stable. PLEURA: The costophrenic angles are sharp. No pleural abnormalities are noted. LUNG PARENCHYMA: There is confluent alveolar opacification of the right upper lung ABDOMEN: The upper abdomen is clear. There is no subphrenic gas. BONES AND SOFT TISSUES: No bone or soft tissue abnormalities are noted. IMPRESSION: RIGHT UPPER LUNG CONSOLIDATION
--- NOTE | 2016-10-18 08:34 | HP ---
HISTORY AND PHYSICAL: DATE OF ADMISSION: 10/17/16 CHIEF COMPLAINT: Fever. HISTORY OF PRESENT ILLNESS: The patient is an 86-year-old woman, who presents to [facility] with a chief complaint of fever. Apparently, the patient was recently discharged from [facility] after having a pneumonia and was there at [facility], where they took her temperature, found it was 103 degrees. The patient herself was asymptomatic. The doctor recommended she be sent to the hospital. The patient's only complaint, she states, her belly hurts, but according to her daughter, she says that on and off all the time. It should be noted that she has an allergy to COLÓN as well and does not want to be put in a room with COLÓN. Her chest x-ray does not look significantly different from her prior chest x-ray. Her urinalysis may indicate urinary tract infection. PAST MEDICAL HISTORY: Significant for CHF; coronary artery disease; chronic kidney disease, stage 3; COPD; Parkinson's dementia; normocytic anemia. PAST SURGICAL HISTORY: Significant for lumpectomy, left breast; bilateral cataracts; cardiac stent placement. MEDICATIONS: Her current medications are follows: 1. Clonazepam 1 mg 3 times a day as needed. 2. Spiriva 1 inhalation daily. 3. Seroquel 25 mg twice daily and daily as needed. 4. Primidone 50 mg at bedtime. 5. Polyethylene glycol also known as MiraLAX 1 packet daily. 6. Metoprolol tartrate 12.5 mg daily. 7. Imdur 30 mg in the morning. 8. Advair Diskus 1 puff inhaled twice daily. 9. Fluoxetine 20 mg twice daily. 10. Docusate 100 mg twice daily. 11. Sinemet 25/100, 1.5 tablets 3 times a day. 12. Calcium and phosphorus with vitamin D one chewable daily. 13. Atorvastatin 20 mg daily. 14. Aspirin 325 mg daily. 15. DuoNeb 1 dose inhaled twice daily as needed. ALLERGIES: She has allergies/adverse reaction to PENICILLIN. FAMILY HISTORY: Reviewed and noncontributory. SOCIAL HISTORY: No tobacco, alcohol, or recreational drug use. She is . She lives currently at [facility], but also with her . Apparently ambulates with a walker. She is currently a full code. REVIEW OF SYSTEMS: A 14-point review of systems was completed with the patient. All pertinent positives and negatives are in the history of present illness, otherwise is negative. PHYSICAL EXAMINATION GENERAL: A pleasant woman lying in bed, in no acute distress. VITAL SIGNS: Heart rate 93 beats per minute, respiratory rate breaths per minute, pulse ox 94%, temperature T-max is 102.6. HEENT: Normocephalic, atraumatic. Pupils equal, round, and reactive to light. Moist mucous membranes. NECK: Supple. No JVD, bruits, palpable thyroid, or lymphadenopathy. LUNGS: Her chest is clear to auscultation and percussion bilaterally. CARDIOVASCULAR: S1, S2 appreciated. ABDOMEN: Positive bowel sounds in all 4 quadrants. Soft, nontender, nondistended. No hepatosplenomegaly. EXTREMITIES: No cyanosis, clubbing, or edema. NEURO: Alert and oriented x3. Moves all extremities. SKIN: No rashes or abnormalities. DIAGNOSTIC STUDIES/LAB DATA: White count is 12.4, hemoglobin 8.8, hematocrit 27, platelets 191. Sodium 136, potassium 4.2, chloride 106, CO2 24, BUN 12, creat 0.84, glucose is 181. Trop is 0.04. Fibrinogen 439. Urinalysis: +2 leukocyte esterase, +2 wbc's, +3 rbc's, but squamous epithelial cells are present. Flu swab is negative. Chest x-ray was interpreted by Radiology as bilateral pulmonary consolidation, concern for pneumonia, most prominent in left lung base, no compelling evidence for pulmonary edema. EKG shows normal sinus rhythm at 95 beats per minute, normal axis. She has got an intraventricular conduction delay of unknown type, quite a bit of artifact and PVCs. ASSESSMENT AND PLAN: 1. Sepsis: Possibly pneumonia, although actually it does not look significantly different from prior x-ray. We will continue vanco and Levaquin as she just was recently discharged from the hospital, IV fluids, check sputum for culture and sensitivity, urine for legionella and pneumococcal antigen, and urine culture is pending. 2. Parkinson's: Continue current regimen. 3. Chronic obstructive pulmonary disease: Surprised the patient has this diagnosis, she has never smoked neither does her . For now continue current regimen. 4. FEN: Regular diet. 5. DVT prophylaxis: Heparin subcu. 6. Finally, the patient is a full code. TIME SPENT: Over 75 minutes was spent on this H and P. More than 40 minutes of which was spent in direct [id number] contact with the patient in evaluation , physical exam, and counseling and coordination of care. CC: Dr. Darcie Smith* [id number]/[facility] #: [id number] MTDJennifer
[2016-10-18] MEDS: Isosorbide Mononitrate ER TAB* 30 MG PO SCH ×2 (08:35→10:29)
[2016-10-18] MEDS ORDERED: CALCIUM PO SCH (09:00)
[2016-10-18] MEDS ORDERED: Polyethylene Glycol 3350* 17 GM PACKET PO SCH (09:00)
[2016-10-18] MEDS ORDERED: Spiriva Inhaler DEVICE* 1 EACH DEVICE INH ONE (09:00)
[2016-10-18] MEDS ORDERED: Atorvastatin* 20 MG TAB PO SCH (09:00)
[2016-10-18] MEDS ORDERED: Metoprolol Tartrate TAB* 25 MG PO SCH (09:00)
[2016-10-18] MEDS ORDERED: Aspirin TAB* 325 MG PO SCH (09:00)
[2016-10-18] MEDS ORDERED: [UNRECOGNIZED DRUG - OTHER] PO SCH (09:00)
[2016-10-18] MEDS ORDERED: PHOSPHORUS PO SCH (09:00)
[2016-10-18] MEDS ORDERED: Docusate CAP* 100 MG PO SCH (09:00)
[2016-10-18] MEDS ORDERED: VITAMI PO SCH (09:00)
[2016-10-18] MEDS: Clindamycin 600 MG IVPREMIX(* 600 MG/50 ML SDV IV SCH ×3 (09:26→21:30)
[2016-10-18] MEDS: Tiotropium CAP.INH* CAP.INH/18 MCG INH SCH (09:33)
[2016-10-18] MEDS: Mometasone/Formoter 200/5 MDI INH SCH ×2 (09:36→21:16)
[2016-10-18] MEDS: Carbidopa/Levodop 25/100 MG TAB(*) PO SCH ×3 (10:26→21:15)
[2016-10-18] MEDS: FLUoxetine CAP* 20 MG PO SCH ×2 (10:26→21:15)
[2016-10-18] MEDS: QUEtiapine TAB* 25 MG PO SCH ×2 (10:29→21:16)
--- NOTE | 2016-10-18 15:21 | ECHO ---
Patient: CRISS GRADY [facility] Rec#: [id number] : 1930 Date: 10/18/2016 Age: 86y Height: 144.78 cm / 57.0 in Weight: 79.38 kg / 175.0 lbs Sex: F BSA: 1.7 Room#: [facility] Admit Date#: 10/17/2016 Type: Inpatient Referring: Aly Gore MD Reading: Jaciel Flood MD Hr Assistant: Merissa Lipscomb RADHA CC: Darcie Smith MD Transthoracic Echocardiogram Indication: SOB BP: 125/59 HR: 85 Rhythm: NSR Findings History: COPD,CHF,HTN,CKD stageIII,dementia. Technical Comments: The study is technically limited due to patient body habitus. Completed at 1515. Left Ventricle: Mild to moderate concentric left ventricular hypertrophy is observed. Global left ventricular wall motion and contractility are within normal limits. There is normal left ventricular systolic function. The estimated ejection fraction is 55-60%. The patient was unable to perform a Valsalva maneuver. Left Atrium: The left atrial chamber size is normal. Right Ventricle: Moderator Band present. The right ventricular cavity size is normal. The right ventricular global systolic function is normal. Flattened in systole and diastole consistent with right ventricular pressure and volume overload. Right Atrium: The right atrial cavity size is normal. Aortic Valve: The aortic valve is trileaflet. The aortic valve leaflets are mildly thickened. There is no evidence of aortic regurgitation. There is no evidence of aortic stenosis. Mitral Valve: There is mitral annular calcification. The mitral valve leaflets are mildly thickened. There is mild to moderate mitral regurgitation. Tricuspid Valve: There is tricuspid annular calcification. There is moderate tricuspid regurgitation. There is evidence of mild to moderate pulmonary hypertension. There is no tricuspid stenosis. Pulmonic Valve: The pulmonic valve appears normal. There is mild pulmonic regurgitation. There is no pulmonic stenosis. Pericardium: The pericardium appears normal. A pericardial fat pad is visualized. Aorta: There is no dilatation of the ascending aorta. The aortic arch is not well visualized. There is no dilation of the aortic root. Pulmonary Artery: The main pulmonary artery appears normal. Venous: The inferior vena cava is dilated. There is an approximate 50% respiratory change in the inferior vena cava dimension. Conclusions Global left ventricular wall motion and contractility are within normal limits. There is normal left ventricular systolic function. The estimated ejection fraction is 55-60%. The right ventricular global systolic function is normal. The aortic valve leaflets are mildly thickened. There is no evidence of aortic regurgitation. There is no evidence of aortic stenosis. There is mild to moderate mitral regurgitation. There is moderate tricuspid regurgitation. There is evidence of mild to moderate pulmonary hypertension. There is no dilatation of the ascending aorta. Compared to study of 06/18/10, the LV function is the same. The degree of MR is slightly worse. The previously noted LA mass is not seen on this study Measurements Name Value Normal Range RVIDd (AP) 2D 2.5 cm (0.9 - 2.6) RVDdMajor (2D) 4 cm (2.2 - 4.4) RAd ISD 4CH 4.7 cm (3.4 - 4.9) RA (A4C)W 4 cm (2.9 - 4.6) IVSd (2D) 1.2 cm (0.6 - 1) LVPWd (2D) 1.1 cm (0.6 - 1) LVIDd (2D) 3.7 cm (3.6 - 5.4) LVIDs (2D) 2.6 cm - LV FS (2D) 30 % (25 - 45) Aortic Annulus 1.5 cm (1.4 - 2.6) Ao root diameter (2D) 3 cm (2.1 - 3.5) Ascending Ao 2.2 cm (2.1 - 3.4) LA dimension (AP) 2D 2.5 cm (2.3 - 3.8) LAd ISD 4CH 5.1 cm (2.9 - 5.3) LA ISD 4CH W 4.2 cm (2.5 - 4.5) Name Value Normal Range LA ESV SP 4CH (A/L) 42 ml - LA ESV SP 2CH (A/L) 82 ml - LA ESV BP (A/L) 60 ml - LA ESV BP (A/L) index 34.98 ml/m2 - LA ESV SP 4CH (MOD) 39 ml - LA ESV SP 2CH (MOD) 77 ml - Name Value Normal Range MV E-wave Vmax 1.1 m/sec - MV deceleration time 208 msec - MV A-wave Vmax 1.2 m/sec - MV E:A ratio 0.91 ratio - LV septal e' Vmax 0.07 m/sec - LV lateral e' Vmax 0.08 m/sec - LV E:e' septal ratio 15.71 ratio - LV E:e' lateral ratio 13.75 ratio - Name Value Normal Range AV Vmax 1.7 m/sec - AV VTI 36 cm - AV peak gradient 11.65 mmHg - AV mean gradient 8.25 mmHg - LVOT Vmax 1.5 m/sec - LVOT VTI 27.8 cm - LVOT peak gradient 8.52 mmHg - LVOT mean gradient 5.53 mmHg - Name Value Normal Range TR Vmax 3.3 m/sec - TR peak gradient 43 mmHg - RAP 8 mmHg - RVSP 51 mmHg - IVC diameter 2.6 cm - Name Value Normal Range PV Vmax 1.1 m/sec - PV peak gradient 4.6 mmHg -
--- NOTE | 2016-10-18 15:50 | PN ---
Subjective Date of Service: 10/18/16 Interval History: pt opens eyes to command, on 02 mask, appears very weak, confused, minimal verbalization. Daughter and present by the bedside Objective Active Medications: Albuterol (Ventolin 2.5 Mg/3 Ml Neb.Sanjuanita*) 2.5 mg INH Q4H PRN PRN Reason: SOB/WHEEZING Last Admin: 10/18/16 06:31 Dose: 2.5 mg Albuterol/Ipratropium (Duoneb (Albuterol 2.5 Mg/Ipratropium 0.5 Mg)) 1 neb INH BID PRN PRN Reason: SOB/WHEEZING Aspirin (Aspirin Tab*) 325 mg PO DAILY [facility] Last Admin: 10/18/16 08:34 Dose: Not Given Atorvastatin Calcium (Lipitor*) 20 mg PO DAILY [facility] Last Admin: 10/18/16 08:34 Dose: Not Given Carbidopa/Levodopa (Sinemet 25/100 Tab(*)) 1.5 tab PO TID [facility] Last Admin: 10/18/16 14:55 Dose: 1.5 tab Clonazepam (Klonopin Tab(*)) 1 mg PO TID PRN PRN Reason: ANXIETY Last Admin: 10/18/16 00:35 Dose: 1 mg Docusate Sodium (Colace Cap*) 100 mg PO BID [facility] Last Admin: 10/18/16 08:35 Dose: Not Given Fluoxetine HCl (Prozac Cap*) 20 mg PO BID [facility] Last Admin: 10/18/16 10:26 Dose: 20 mg Heparin Sodium (Porcine) (Heparin Vial(*)) 5,000 units SUBCUT Q8HR [facility] Last Admin: 10/18/16 14:55 Dose: 5,000 units Vancomycin HCl 750 mg/ Sodium (Chloride) 250 mls @ 166.667 mls/hr IVPB Q12H [facility] PRN Reason: Protocol Last Admin: 10/18/16 05:54 Dose: 166.667 mls/hr Sodium Chloride (Ns 0.9% 1000 Ml*) 1,000 mls @ 100 mls/hr IV PER RATE [facility] Last Admin: 10/18/16 00:51 Dose: 100 mls/hr Levofloxacin/Dextrose (Levaquin 750 Mg Ivpremix(*)) 750 mg in 150 mls @ 100 mls /hr IVPB Q48H [facility] Clindamycin HCl/Dextrose (Cleocin 600 Mg Ivpremix(*) Sdv) 600 mg in 50 mls @ 100 mls/hr IV Q6H [facility] Last Admin: 10/18/16 14:55 Dose: 100 mls/hr Isosorbide Mononitrate (Imdur Er Tab*) 30 mg PO QAM [facility] Last Admin: 10/18/16 10:29 Dose: 30 mg Metoprolol Tartrate (Lopressor Tab*) 12.5 mg PO DAILY [facility] Last Admin: 10/18/16 10:27 Dose: 12.5 mg Mometasone Furoate/Formoterol Fumar (Dulera 200/5 Mdi*) 2 puff INH BID [facility] Last Admin: 10/18/16 09:36 Dose: 2 puff (Calcium & Phosphorus W/ Vitami [Citracal+D3 250- 107-500 Mg-Mg-Unit] 1 1 chw PO DAILY [facility] Last Admin: 10/18/16 08:35 Dose: Not Given Pharmacy Consult (Vancomycin Per Pharmacy*) 1 note FOLLOW UP . PRN PRN Reason: PER PROTOCOL Pharmacy Profile Note (Vancomycin Trough Check) 1 note FOLLOW UP 0500 ONE Stop: 10/19/16 05:01 Polyethylene Glycol/Electrolytes (Miralax*) 17 gm PO DAILY [facility] Last Admin: 10/18/16 08:35 Dose: Not Given Primidone (Mysoline Tab(*)) 50 mg PO BEDTIME [facility] Quetiapine Fumarate (Seroquel Tab*) 25 mg PO BID [facility] Last Admin: 10/18/16 10:29 Dose: 25 mg Quetiapine Fumarate (Seroquel Tab*) 25 mg PO DAILY PRN PRN Reason: ANXIETY Last Admin: 10/18/16 00:35 Dose: 25 mg Tiotropium [place] (Spiriva Cap.Inh*) 1 cap INH DAILY [facility] Last Admin: 10/18/16 09:33 Dose: 1 cap Vital Signs 10/17/16 10/17/16 10/17/16 21:00 21:06 21:08 Temperature 102.6 F 102.6 F Pulse Rate 96 97 Respiratory 16 19 Rate Blood Pressure 121/60 135/90 (mmHg) O2 Sat by Pulse 95 94 Oximetry 10/17/16 10/17/16 10/17/16 21:39 22:00 22:30 Temperature 102.2 F 102.0 F 101.8 F Pulse Rate 95 95 95 Respiratory 26 25 25 Rate Blood Pressure 105/64 122/69 109/95 (mmHg) O2 Sat by Pulse 95 95 94 Oximetry 10/17/16 10/17/16 10/17/16 22:54 23:00 23:52 Temperature 101.5 F 101.3 F 98.9 F Pulse Rate 93 94 Respiratory 25 20 Rate Blood Pressure 107/61 137/63 (mmHg) O2 Sat by Pulse 93 92 Oximetry 10/18/16 10/18/16 10/18/16 00:00 00:02 00:35 Temperature Pulse Rate Respiratory 20 20 Rate Blood Pressure (mmHg) O2 Sat by Pulse 92 Oximetry 10/18/16 10/18/16 10/18/16 02:21 02:35 06:08 Temperature 100.3 F Pulse Rate 93 114 Respiratory 20 17 28 Rate Blood Pressure 125/59 (mmHg) O2 Sat by Pulse 94 38 Oximetry 10/18/16 10/18/16 10/18/16 06:23 06:35 07:56 Temperature Pulse Rate 112 111 Respiratory 32 26 Rate Blood Pressure (mmHg) O2 Sat by Pulse 95 55 90 Oximetry 10/18/16 10/18/16 10/18/16 07:57 08:00 08:15 Temperature 100.6 F Pulse Rate 111 109 105 Respiratory 24 23 28 Rate Blood Pressure 145/78 138/58 127/62 (mmHg) O2 Sat by Pulse 91 92 92 Oximetry 10/18/16 10/18/16 10/18/16 08:30 08:45 09:00 Temperature Pulse Rate 103 102 101 Respiratory 24 26 25 Rate Blood Pressure 123/57 121/61 119/62 (mmHg) O2 Sat by Pulse 95 96 96 Oximetry 10/18/16 10/18/16 10/18/16 09:15 09:30 09:45 Temperature Pulse Rate 102 103 Respiratory 26 24 Rate Blood Pressure 118/63 111/48 123/60 (mmHg) O2 Sat by Pulse 97 95 Oximetry 10/18/16 10/18/16 10/18/16 10:00 10:15 10:30 Temperature Pulse Rate 102 100 101 Respiratory 27 28 29 Rate Blood Pressure 119/41 122/57 (mmHg) O2 Sat by Pulse 95 95 94 Oximetry 10/18/16 10/18/16 10/18/16 10:45 11:00 12:00 Temperature 99.1 F Pulse Rate 99 95 Respiratory 22 28 Rate Blood Pressure 121/61 (mmHg) O2 Sat by Pulse 95 96 Oximetry 10/18/16 10/18/16 10/18/16 12:01 13:00 14:00 Temperature Pulse Rate 94 87 85 Respiratory 19 23 26 Rate Blood Pressure 113/57 104/51 106/58 (mmHg) O2 Sat by Pulse 97 96 97 Oximetry 10/18/16 15:00 Temperature Pulse Rate 84 Respiratory 19 Rate Blood Pressure 109/74 (mmHg) O2 Sat by Pulse 95 Oximetry Oxygen Devices in Use Now: Simple Face Mask - at 15 L 02 Appearance: 86 yo F, with increased WOB, minimaly verbal, lethargic, disoriented Eyes: No Scleral Icterus, PERRLA Ears/Nose/Mouth/Throat: NL Teeth, Lips, Gums, Mucous Membranes Moist Neck: NL Appearance and Movements; NL JVP, Trachea Midline Respiratory: - - rhonchi over entire r lung Cardiovascular: NL Sounds; No Murmurs; No JVD, RRR Abdominal: NL Sounds; No Tenderness; No Distention Lymphatic: No Cervical Adenopathy Extremities: No Clubbing, Cyanosis, - - trace pedal edema b/l Neurological: NL Muscle Strength and Tone Result Diagrams: 10/18/16 06:03 10/18/16 06:03 Additional Lab and Data: Lab Results 10/17/16 10/17/16 10/17/16 Range/Units 18:36 18:36 18:36 WBC 12.4 H (3.5-10.8) 10^3/ul RBC 3.00 L (4.0-5.4) 10^6/ul Hgb 8.8 L (12.0-16.0) g/dl Hct 27 L (35-47) % MCV 91 (80-97) fL MCH 29 (27-31) pg MCHC 32 (31-36) g/dl RDW 15 (10.5-15) % Plt Count 191 (150-450) 10^3/ul MPV 8 (7.4-10.4) um3 Neut % (Auto) 83.0 (38-83) % Lymph % (Auto) 8.0 L (25-47) % [place] % (Auto) 7.0 (1-9) % Eos % (Auto) 1.4 (0-6) % Baso % (Auto) 0.6 (0-2) % Absolute Neuts (auto) 10.3 H (1.5-7.7) 10^3/ul Absolute Lymphs (auto) 1.0 (1.0-4.8) 10^3/ul Absolute Monos (auto) 0.9 H (0-0.8) 10^3/ul Absolute Eos (auto) 0.2 (0-0.6) 10^3/ul Absolute Basos (auto) 0.1 (0-0.2) 10^3/ul Absolute Nucleated RBC 0.01 10^3/ul Nucleated RBC % 0.1 INR (Anticoag Therapy) 1.01 (0.89-1.11) APTT 19.0 L (26.0-36.3) seconds Fibrinogen 439 H (110.8-404.3) mg/dL Patient Temperature ABG pH (7.35-7.45) ABG pCO2 (35-45) mmHg ABG pO2 (80-100) mmHg ABG HCO3 (19-31) mmol/L ABG O2 Saturation (95-98) % ABG Base Excess (-2.0-2.0) Respiration Rate Ventilator Type Vent Mode FiO2 Inspiratory Time PEEP Pressure Support Pressure Control EPAP IPAP BiPAP Sodium 136 (133-145) mmol/L Potassium 4.2 (3.5-5.0) mmol/L Chloride 106 (101-111) mmol/L Carbon Dioxide 24 (22-32) mmol/L Anion Gap 6 (2-11) mmol/L BUN 12 (6-24) mg/dL Creatinine 0.84 (0.51-0.95) mg/dL Est GFR ( Amer) 83.1 (>60) Est GFR (Non-Af Amer) 64.6 (>60) BUN/Creatinine Ratio 14.3 (8-20) Glucose 181 H (70-100) mg/dL Lactic Acid (0.5-2.0) mmol/L Calcium 8.5 L (8.6-10.3) mg/dL Total Bilirubin 0.50 (0.2-1.0) mg/dL AST 33 (13-39) U/L ALT 10 (7-52) U/L Alkaline Phosphatase 123 H (34-104) U/L Total Creatine Kinase 64 (10-223) U/L Troponin I 0.04 H* (<0.04) ng/mL C-Reactive Protein 109.72 H (< 5.00) mg/L B-Natriuretic Peptide ( - 100) pg/mL Total Protein 6.8 (6.4-8.9) g/dL Albumin 3.2 (3.2-5.2) g/dL Globulin 3.6 (2-4) g/dL Albumin/Globulin Ratio 0.9 L (1-3) Urine Color Urine Appearance Urine pH (5-9) Ur Specific [place] (1.010-1.030) Urine Protein (Negative) Urine Ketones (Negative) Urine Blood (Negative) Urine Nitrate (Negative) Urine Bilirubin (Negative) Urine Urobilinogen (Negative) Ur Leukocyte Esterase (Negative) Urine WBC (Auto) (Absent) Urine RBC (Auto) (Absent) Ur Squamous Epith Cells (Absent) Urine Bacteria (Absent) Urine Glucose (Negative) 10/17/16 10/17/16 10/17/16 Range/Units 18:36 18:36 18:50 WBC (3.5-10.8) 10^3/ul RBC (4.0-5.4) 10^6/ul Hgb (12.0-16.0) g/dl Hct (35-47) % MCV (80-97) fL MCH (27-31) pg MCHC (31-36) g/dl RDW (10.5-15) % Plt Count (150-450) 10^3/ul MPV (7.4-10.4) um3 Neut % (Auto) (38-83) % Lymph % (Auto) (25-47) % [place] % (Auto) (1-9) % Eos % (Auto) (0-6) % Baso % (Auto) (0-2) % Absolute Neuts (auto) (1.5-7.7) 10^3/ul Absolute Lymphs (auto) (1.0-4.8) 10^3/ul Absolute Monos (auto) (0-0.8) 10^3/ul Absolute Eos (auto) (0-0.6) 10^3/ul Absolute Basos (auto) (0-0.2) 10^3/ul Absolute Nucleated RBC 10^3/ul Nucleated RBC % INR (Anticoag Therapy) (0.89-1.11) APTT (26.0-36.3) seconds Fibrinogen (110.8-404.3) mg/dL Patient Temperature Not Reportable ABG pH 7.43 (7.35-7.45) ABG pCO2 38 (35-45) mmHg ABG pO2 310 H (80-100) mmHg ABG HCO3 25.6 (19-31) mmol/L ABG O2 Saturation 100.3 H (95-98) % ABG Base Excess 0.9 (-2.0-2.0) Respiration Rate 16 Ventilator Type Not Reportable Vent Mode Not Reportable FiO2 100 Inspiratory Time Not Reportable PEEP Not Reportable Pressure Support Not Reportable Pressure Control Not Reportable EPAP 5 IPAP 10 BiPAP x Sodium (133-145) mmol/L Potassium (3.5-5.0) mmol/L Chloride (101-111) mmol/L Carbon Dioxide (22-32) mmol/L Anion Gap (2-11) mmol/L BUN (6-24) mg/dL Creatinine (0.51-0.95) mg/dL Est GFR ( Amer) (>60) Est GFR (Non-Af Amer) (>60) BUN/Creatinine Ratio (8-20) Glucose (70-100) mg/dL Lactic Acid 1.4 (0.5-2.0) mmol/L Calcium (8.6-10.3) mg/dL Total Bilirubin (0.2-1.0) mg/dL AST (13-39) U/L ALT (7-52) U/L Alkaline Phosphatase (34-104) U/L Total Creatine Kinase (10-223) U/L Troponin I (<0.04) ng/mL C-Reactive Protein (< 5.00) mg/L B-Natriuretic Peptide 221 H ( - 100) pg/mL Total Protein (6.4-8.9) g/dL Albumin (3.2-5.2) g/dL Globulin (2-4) g/dL Albumin/Globulin Ratio (1-3) Urine Color Urine Appearance Urine pH (5-9) Ur Specific [place] (1.010-1.030) Urine Protein (Negative) Urine Ketones (Negative) Urine Blood (Negative) Urine Nitrate (Negative) Urine Bilirubin (Negative) Urine Urobilinogen (Negative) Ur Leukocyte Esterase (Negative) Urine WBC (Auto) (Absent) Urine RBC (Auto) (Absent) Ur Squamous Epith Cells (Absent) Urine Bacteria (Absent) Urine Glucose (Negative) 10/17/16 Range/Units 20:15 WBC (3.5-10.8) 10^3/ul RBC (4.0-5.4) 10^6/ul Hgb (12.0-16.0) g/dl Hct (35-47) % MCV (80-97) fL MCH (27-31) pg MCHC (31-36) g/dl RDW (10.5-15) % Plt Count (150-450) 10^3/ul MPV (7.4-10.4) um3 Neut % (Auto) (38-83) % Lymph % (Auto) (25-47) % [place] % (Auto) (1-9) % Eos % (Auto) (0-6) % Baso % (Auto) (0-2) % Absolute Neuts (auto) (1.5-7.7) 10^3/ul Absolute Lymphs (auto) (1.0-4.8) 10^3/ul Absolute Monos (auto) (0-0.8) 10^3/ul Absolute Eos (auto) (0-0.6) 10^3/ul Absolute Basos (auto) (0-0.2) 10^3/ul Absolute Nucleated RBC 10^3/ul Nucleated RBC % INR (Anticoag Therapy) (0.89-1.11) APTT (26.0-36.3) seconds Fibrinogen (110.8-404.3) mg/dL Patient Temperature ABG pH (7.35-7.45) ABG pCO2 (35-45) mmHg ABG pO2 (80-100) mmHg ABG HCO3 (19-31) mmol/L ABG O2 Saturation (95-98) % ABG Base Excess (-2.0-2.0) Respiration Rate Ventilator Type Vent Mode FiO2 Inspiratory Time PEEP Pressure Support Pressure Control EPAP IPAP BiPAP Sodium (133-145) mmol/L Potassium (3.5-5.0) mmol/L Chloride (101-111) mmol/L Carbon Dioxide (22-32) mmol/L Anion Gap (2-11) mmol/L BUN (6-24) mg/dL Creatinine (0.51-0.95) mg/dL Est GFR ( Amer) (>60) Est GFR (Non-Af Amer) (>60) BUN/Creatinine Ratio (8-20) Glucose (70-100) mg/dL Lactic Acid (0.5-2.0) mmol/L Calcium (8.6-10.3) mg/dL Total Bilirubin (0.2-1.0) mg/dL AST (13-39) U/L ALT (7-52) U/L Alkaline Phosphatase (34-104) U/L Total Creatine Kinase (10-223) U/L Troponin I (<0.04) ng/mL C-Reactive Protein (< 5.00) mg/L B-Natriuretic Peptide ( - 100) pg/mL Total Protein (6.4-8.9) g/dL Albumin (3.2-5.2) g/dL Globulin (2-4) g/dL Albumin/Globulin Ratio (1-3) Urine Color Yellow Urine Appearance Clear Urine pH 6.0 (5-9) Ur Specific [place] 1.014 (1.010-1.030) Urine Protein Negative (Negative) Urine Ketones Negative (Negative) Urine Blood 2+ H (Negative) Urine Nitrate Negative (Negative) Urine Bilirubin Negative (Negative) Urine Urobilinogen Negative (Negative) Ur Leukocyte Esterase 2+ H (Negative) Urine WBC (Auto) 2+(11-20/hpf) H (Absent) Urine RBC (Auto) 3+(>10/hpf) H (Absent) Ur Squamous Epith Cells Present H (Absent) Urine Bacteria Absent (Absent) Urine Glucose Negative (Negative) Microbiology and Other Data: Microbiology 10/17/16 21:15 Legionella Urinary Antigen - Final Urine Negative Legionella Streptococcus pneumoniae Ag Screen - Final Negative S. pneumo Antigen Assess/Plan/Problems-Billing Assessment: 86 yo F with h/o dementia, recent pneumonia, from [facility] for rehab, COPD, CHF and Parkinson's presents with respiratory distress with R lung pneumonia - Patient Problems (1) Acute respiratory failure Comment: hypoxemic, septic according to SOFA (at admission) due to healthcare associated R lung pnemonia, vs aspiration. Cont clindamycin/Vanc/Levaquin Prognosis poor-family made aware. They wish DNR/DNI (2) Dysphagia Comment: failed swallow eval will place on NPO and IVF (3) CHF (congestive heart failure) Comment: diretics on hold due to NPO status Euvolemic (4) Parkinson disease Comment: sinemet placed on hold due to NPO (5) Elevated troponin Comment: due to demand ischemia (at 0.04 and 0.07) Echo shows EF 55%, mild to mod MR, mod Pulm HTN (6) COPD exacerbation Comment: will treat with Solu Medrol (7) DVT prophylaxis Comment: HSQ (8) DNR (do not resuscitate) Comment: [facility]OLST updated.
[2016-10-18] MEDS: methylPREDNISolone SOD SUCC* 125 MG 2 ML VIAL IV SCH (16:35)
[2016-10-18] MEDS: Pantoprazole IV* 40 MG IV SCH (16:35)
[2016-10-18] MEDS: Primidone TAB(*) 50 MG PO SCH (21:16)
[2016-10-19] MEDS: Clindamycin 600 MG IVPREMIX(* 600 MG/50 ML SDV IV SCH ×4 (02:21→21:14)
[2016-10-19] MEDS: Albuterol/Ipratropium NEB.SOL* Albuterol 2.5 MG/Ipratropium 0.5 MG 3 ML INH PRN ×2 (04:00→20:46)
[2016-10-19 04:19] LABS: Hematocrit 25 % (35-47); Hemoglobin 8.3 g/dl (12.0-16.0); Mean Corpuscular HGB Conc 33 g/dl (31-36); Mean Corpuscular Hemoglobin 30 pg (27-31); Mean Corpuscular Volume 91 fL (80-97); Mean Platelet Volume 8 um3 (7.4-10.4); Red Cell Distribution Width 15 % (10.5-15)
[2016-10-19 04:26] LABS: Calcium 8.2 mg/dL (8.6-10.3); EGFR African American 89.2 (>60); EGFR Non-African American 69.3 (>60); Potassium 3.9 mmol/L (3.5-5.0)
[2016-10-19] MEDS ORDERED: Vancomycin Trough Check NOTE FOLLOW UP ONE (05:00)
[2016-10-19] MEDS: methylPREDNISolone SOD SUCC* 125 MG 2 ML VIAL IV SCH ×2 (05:44→16:56)
[2016-10-19] MEDS: Heparin VIAL(*) 5000 UNITS/ML VIAL (FIVE THOUSAND) SUBCUT SCH ×3 (05:45→21:22)
[2016-10-19] MEDS: Vancomycin(*) 750 MG in NS 0.9% 250 ML* 250 ML IVPB SCH (05:45)
[2016-10-19] MEDS: FLUoxetine CAP* 20 MG PO SCH (08:02)
[2016-10-19] MEDS: QUEtiapine TAB* 25 MG PO SCH ×2 (08:09→21:01)
[2016-10-19] MEDS: Carbidopa/Levodop 25/100 MG TAB(*) PO SCH ×3 (08:09→21:01)
[2016-10-19] MEDS ORDERED: Haloperidol TAB* 2 MG PO PRN (08:11)
--- NOTE | 2016-10-19 08:17 | PN ---
Subjective Date of Service: 10/19/16 Interval History: Patient seen this morning, at bedside. Doing better today, much more alert, is able to tell me she is in the hospital, can recognize . Denies SOB, chest pain, discomfort but becomes SOB when sitting forward for lung exam. Family History: Unchanged from Admission Social History: Unchanged from Admission Past Medical History: Unchanged from Admission Objective Active Medications: Albuterol (Ventolin 2.5 Mg/3 Ml Neb.Sanjuanita*) 2.5 mg INH Q4H PRN Albuterol/Ipratropium (Duoneb (Albuterol 2.5 Mg/Ipratropium 0.5 Mg)) 1 neb INH BID PRN Carbidopa/Levodopa (Sinemet 25/100 Tab(*)) 1.5 tab PO TID [facility] Clonazepam (Klonopin Tab(*)) 1 mg PO TID PRN Fluoxetine HCl (Prozac Cap*) 20 mg PO BID [facility] Heparin Sodium (Porcine) (Heparin Vial(*)) 5,000 units SUBCUT Q8HR [facility] Levofloxacin/Dextrose (Levaquin 750 Mg Ivpremix(*)) 750 mg in 150 mls @ 100 mls /hr IVPB Q48H [facility] Clindamycin HCl/Dextrose (Cleocin 600 Mg Ivpremix(*) Sdv) 600 mg in 50 mls @ 100 mls/hr IV Q6H [facility] Sodium Chloride (Ns 0.9% 1000 Ml*) 1,000 mls @ 75 mls/hr IV PER RATE [facility] Vancomycin HCl 1,000 mg/ (Sodium Chloride) 250 mls @ 166.667 mls/hr IVPB Q12H [facility] Methylprednisolone Sodium Succinate (Solu-Medrol*) 60 mg IV Q12H [facility] Mometasone Furoate/Formoterol Fumar (Dulera 200/5 Mdi*) 2 puff INH BID [facility] Pantoprazole Sodium (Protonix Iv*) 40 mg IV Q24H [facility] Pharmacy Consult (Vancomycin Per Pharmacy*) 1 note FOLLOW UP . PRN Pharmacy Profile Note (Vancomycin Trough Check) 1 note FOLLOW UP 1430 ONE Primidone (Mysoline Tab(*)) 50 mg PO BEDTIME [facility] Quetiapine Fumarate (Seroquel Tab*) 25 mg PO BID [facility] Tiotropium [place] (Spiriva Cap.Inh*) 1 cap INH DAILY [facility] Vital Signs 10/18/16 10/18/16 10/18/16 08:15 08:30 08:45 Temperature Pulse Rate 105 103 102 Respiratory 28 24 26 Rate Blood Pressure 127/62 123/57 121/61 (mmHg) O2 Sat by Pulse 92 95 96 Oximetry 10/18/16 10/18/16 10/18/16 09:00 09:15 09:30 Temperature Pulse Rate 101 102 Respiratory 25 26 Rate Blood Pressure 119/62 118/63 111/48 (mmHg) O2 Sat by Pulse 96 97 Oximetry 10/18/16 10/18/16 10/18/16 09:45 10:00 10:15 Temperature Pulse Rate 103 102 100 Respiratory 24 27 28 Rate Blood Pressure 123/60 119/41 (mmHg) O2 Sat by Pulse 95 95 95 Oximetry 10/18/16 10/18/16 10/18/16 10:30 10:45 11:00 Temperature Pulse Rate 101 99 Respiratory 29 22 Rate Blood Pressure 122/57 121/61 (mmHg) O2 Sat by Pulse 94 95 Oximetry 10/18/16 10/18/16 10/18/16 12:00 12:01 13:00 Temperature 99.1 F Pulse Rate 95 94 87 Respiratory 28 19 23 Rate Blood Pressure 113/57 104/51 (mmHg) O2 Sat by Pulse 96 97 96 Oximetry 10/18/16 10/18/16 10/18/16 14:00 15:00 16:00 Temperature 98.7 F Pulse Rate 85 84 83 Respiratory 26 19 20 Rate Blood Pressure 106/58 109/74 104/62 (mmHg) O2 Sat by Pulse 97 95 96 Oximetry 10/18/16 10/18/16 10/18/16 17:00 17:50 18:00 Temperature Pulse Rate 82 90 82 Respiratory 25 22 21 Rate Blood Pressure 97/56 99/47 (mmHg) O2 Sat by Pulse 96 96 94 Oximetry 10/18/16 10/18/16 10/18/16 19:00 20:00 21:00 Temperature 98.4 F Pulse Rate 85 82 80 Respiratory 23 21 23 Rate Blood Pressure 103/60 100/53 104/59 (mmHg) O2 Sat by Pulse 95 96 96 Oximetry 10/18/16 10/18/16 10/18/16 22:00 22:01 23:00 Temperature Pulse Rate 83 83 81 Respiratory 19 24 21 Rate Blood Pressure 78/64 119/55 115/54 (mmHg) O2 Sat by Pulse 96 95 95 Oximetry 10/18/16 10/19/16 10/19/16 23:43 00:00 00:01 Temperature 97.6 F Pulse Rate 81 81 Respiratory 16 19 Rate Blood Pressure 106/51 (mmHg) O2 Sat by Pulse 97 97 Oximetry 10/19/16 10/19/16 10/19/16 00:08 01:00 02:00 Temperature Pulse Rate 86 79 Respiratory 20 22 16 Rate Blood Pressure 109/57 109/59 (mmHg) O2 Sat by Pulse 97 98 Oximetry 10/19/16 10/19/16 10/19/16 03:00 04:00 05:00 Temperature 98.5 F Pulse Rate 79 86 93 Respiratory 17 21 24 Rate Blood Pressure 105/51 129/67 (mmHg) O2 Sat by Pulse 94 95 94 Oximetry 10/19/16 10/19/16 10/19/16 05:01 06:00 07:00 Temperature Pulse Rate 95 93 93 Respiratory 20 20 19 Rate Blood Pressure 150/125 155/135 132/73 (mmHg) O2 Sat by Pulse 94 94 93 Oximetry 10/19/16 07:34 Temperature 99.6 F Pulse Rate Respiratory Rate Blood Pressure (mmHg) O2 Sat by Pulse Oximetry Oxygen Devices in Use Now: Simple Face Mask - at 15 L 02 Appearance: Elderly, F, laying in bed in mild distress Eyes: No Scleral Icterus Ears/Nose/Mouth/Throat: Mucous Membranes Moist Neck: NL Appearance and Movements; NL JVP Respiratory: - - Tachypnea, coarse ronchi throughout R lung, expiratory wheezing B/L (R>L) Cardiovascular: NL Sounds; No Murmurs; No JVD, RRR Abdominal: NL Sounds; No Tenderness; No Distention Lymphatic: No Cervical Adenopathy Extremities: No Edema Skin: No Rash or Ulcers Neurological: - - Alert, oriented to self and place, no focal deficits Result Diagrams: 10/19/16 03:57 10/19/16 03:57 Additional Lab and Data: Microbiology and Other Data: Assess/Plan/Problems-Billing Assessment: 86 yo F with h/o dementia, recent pneumonia, from [facility] for rehab, COPD, CHF and Parkinson's presents with respiratory distress with R lung pneumonia - Patient Problems (1) Acute respiratory failure Current Visit: Yes Comment: hypoxemic, septic according to SOFA (at admission) due to healthcare associated R lung pnemonia vs aspiration. Cont clindamycin/Vanc/Levaquin for now, may discontinue Vancomycin Mental status improved Wean O2 as able Prognosis poor-family made aware. 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 Holding Metoprolol, Imdur (8) DVT prophylaxis Current Visit: No Comment: HSQ (9) DNR (do not resuscitate) Current Visit: Yes Comment: [facility]OLST updated.
[2016-10-19] MEDS: Mometasone/Formoter 200/5 MDI INH SCH ×2 (10:47→20:46)
[2016-10-19] MEDS: Tiotropium CAP.INH* CAP.INH/18 MCG INH SCH (10:47)
[2016-10-19] MEDS: Vancomycin(*) 1,000 MG in NS 0.9% 250 ML* 250 ML IVPB SCH (15:09)
[2016-10-19] MEDS: clonazePAM TAB(*) 1 MG PO PRN (15:56)
[2016-10-19] MEDS: Pantoprazole IV* 40 MG IV SCH (16:56)
[2016-10-19] MEDS ORDERED: Acetaminophen TAB* 325 MG PO PRN (19:28)
[2016-10-19] MEDS ORDERED: Levofloxacin 750 MG IVPREMIX(* 750 MG/150 ML BAG IVPB SCH (20:00)
[2016-10-19] MEDS: NS 0.9% 1000 ML* 1,000 ML IV SCH (20:05)
[2016-10-19] MEDS: Fluoxetine LIQ* 20 MG/5 ML UDC PO SCH (21:15)
[2016-10-19] MEDS: Primidone TAB(*) 50 MG PO SCH (21:15)
[2016-10-20] MEDS: Clindamycin 600 MG IVPREMIX(* 600 MG/50 ML SDV IV SCH ×3 (01:55→13:49)
[2016-10-20] MEDS: Vancomycin(*) 1,000 MG in NS 0.9% 250 ML* 250 ML IVPB SCH (03:03)
[2016-10-20 04:35] LABS: BUN/Creatinine Ratio 20.4 (8-20); Calcium 8.5 mg/dL (8.6-10.3); EGFR African American 62.2 (>60); EGFR Non-African American 48.3 (>60); Potassium 4.2 mmol/L (3.5-5.0)
[2016-10-20 04:37] LABS: Hematocrit 29 % (35-47); Hemoglobin 8.9 g/dl (12.0-16.0); Mean Corpuscular HGB Conc 31 g/dl (31-36); Mean Corpuscular Hemoglobin 29 pg (27-31); Mean Corpuscular Volume 91 fL (80-97); Mean Platelet Volume 8 um3 (7.4-10.4); Red Blood Count 3.13 10^6/ul (4.0-5.4); Red Cell Distribution Width 15 % (10.5-15); White Blood Count 12.3 10^3/ul (3.5-10.8)
[2016-10-20 04:43] LABS: Troponin I 0.07 ng/mL (<0.04)
[2016-10-20] MEDS: clonazePAM TAB(*) 1 MG PO PRN (05:05)
[2016-10-20] MEDS: methylPREDNISolone SOD SUCC* 125 MG 2 ML VIAL IV SCH ×2 (05:08→17:32)
[2016-10-20] MEDS: Albuterol/Ipratropium NEB.SOL* Albuterol 2.5 MG/Ipratropium 0.5 MG 3 ML INH PRN (05:14)
[2016-10-20] MEDS: Heparin VIAL(*) 5000 UNITS/ML VIAL (FIVE THOUSAND) SUBCUT SCH ×2 (05:28→13:51)
[2016-10-20] MEDS: NS 0.9% 1000 ML* 1,000 ML IV SCH (05:30)
[2016-10-20] MEDS ORDERED: Furosemide IV* 10 MG/ML VIAL (40 MG) IV ONE (08:00)
[2016-10-20] MEDS: Albuterol/Ipratropium NEB.SOL* Albuterol 2.5 MG/Ipratropium 0.5 MG 3 ML INH SCH ×3 (08:02→21:18)
[2016-10-20] MEDS: Tiotropium CAP.INH* CAP.INH/18 MCG INH SCH (08:09)
[2016-10-20] MEDS: Mometasone/Formoter 200/5 MDI INH SCH ×2 (08:10→21:18)
--- NOTE | 2016-10-20 08:16 | PN ---
Subjective Date of Service: 10/20/16 Interval History: Patient seen this morning with family at bedside. Having some hypoxia this morning with O2 sats in high 80s on 10L. Seems to be working a bit harder but denies SOB or pain. Family History: Unchanged from Admission Social History: Unchanged from Admission Past Medical History: Unchanged from Admission Objective Active Medications: Acetaminophen (Tylenol Tab*) 650 mg PO Q4H PRN Albuterol (Ventolin 2.5 Mg/3 Ml Neb.Sanjuanita*) 2.5 mg INH Q4H PRN Albuterol/Ipratropium (Duoneb (Albuterol 2.5 Mg/Ipratropium 0.5 Mg)) 1 neb INH Q6H [facility] Carbidopa/Levodopa (Sinemet 25/100 Tab(*)) 1.5 tab PO TID [facility] Clonazepam (Klonopin Tab(*)) 1 mg PO TID PRN Fluoxetine HCl (Fluoxetine Liq*) 20 mg PO BID [facility] Furosemide (Lasix Iv*) 40 mg IV ONCE ONE Haloperidol (Haldol Tab*) 4 mg PO Q6H PRN Heparin Sodium (Porcine) (Heparin Vial(*)) 5,000 units SUBCUT Q8HR [facility] Levofloxacin/Dextrose (Levaquin 750 Mg Ivpremix(*)) 750 mg in 150 mls @ 100 mls /hr IVPB Q48H [facility] Clindamycin HCl/Dextrose (Cleocin 600 Mg Ivpremix(*) Sdv) 600 mg in 50 mls @ 100 mls/hr IV Q6H [facility] Methylprednisolone Sodium Succinate (Solu-Medrol*) 60 mg IV Q12H [facility] Mometasone Furoate/Formoterol Fumar (Dulera 200/5 Mdi*) 2 puff INH BID [facility] Pantoprazole Sodium (Protonix Iv*) 40 mg IV Q24H [facility] Primidone (Mysoline Tab(*)) 50 mg PO BEDTIME [facility] Quetiapine Fumarate (Seroquel Tab*) 25 mg PO BID [facility] Tiotropium [place] (Spiriva Cap.Inh*) 1 cap INH DAILY [facility] Vital Signs 10/19/16 10/19/16 10/19/16 09:00 09:01 10:00 Temperature Pulse Rate 94 94 92 Respiratory 23 23 25 Rate Blood Pressure 88/73 114/67 84/70 (mmHg) O2 Sat by Pulse 96 96 94 Oximetry 10/19/16 10/19/16 10/19/16 10:55 11:00 11:50 Temperature 100.3 F Pulse Rate 89 93 Respiratory 20 21 Rate Blood Pressure 117/76 (mmHg) O2 Sat by Pulse 95 95 Oximetry 10/19/16 10/19/16 10/19/16 12:00 13:00 14:00 Temperature Pulse Rate 95 97 98 Respiratory 26 25 14 Rate Blood Pressure 119/102 137/56 114/83 (mmHg) O2 Sat by Pulse 92 89 92 Oximetry 10/19/16 10/19/16 10/19/16 15:00 15:22 15:56 Temperature 100.4 F 100.4 F Pulse Rate 100 Respiratory 20 Rate Blood Pressure 122/43 (mmHg) O2 Sat by Pulse 92 Oximetry 10/19/16 10/19/16 10/19/16 18:19 18:43 20:00 Temperature 99.9 F 99.9 F Pulse Rate 100 100 89 Respiratory 20 20 22 Rate Blood Pressure 138/78 138/78 (mmHg) O2 Sat by Pulse 97 97 92 Oximetry 10/19/16 10/19/16 10/20/16 22:03 23:04 03:50 Temperature 97.5 F 98.6 F 97.8 F Pulse Rate 103 96 Respiratory 22 24 Rate Blood Pressure 141/105 97/57 (mmHg) O2 Sat by Pulse 95 100 Oximetry 10/20/16 10/20/16 10/20/16 03:54 03:56 05:05 Temperature Pulse Rate 275 166 Respiratory 23 Rate Blood Pressure 182/94 134/80 (mmHg) O2 Sat by Pulse Oximetry Oxygen Devices in Use Now: Nasal Cannula - 10L Appearance: Elderly, F, laying in bed in moderate respiratory distress Eyes: No Scleral Icterus Ears/Nose/Mouth/Throat: - - Dry MM Neck: NL Appearance and Movements; NL JVP Respiratory: Symmetrical Chest Expansion and Respiratory Effort, - - Tight, minimal air movement with wheezing, rales in B/L bases Cardiovascular: NL Sounds; No Murmurs; No JVD, RRR Abdominal: NL Sounds; No Tenderness; No Distention Lymphatic: No Cervical Adenopathy Extremities: No Edema Skin: No Rash or Ulcers Neurological: - - Alert, oritented to self and place, no focal deficits Result Diagrams: 10/20/16 04:09 10/20/16 04:09 Additional Lab and Data: Microbiology and Other Data: Assess/Plan/Problems-Billing Assessment: 86 yo F with h/o dementia, recent pneumonia, from [facility] for rehab, COPD, CHF and Parkinson's presents with respiratory distress with R lung pneumonia - Patient Problems (1) Acute respiratory failure Current Visit: Yes Comment: hypoxemic, septic according to SOFA (at admission) due to healthcare associated R lung pnemonia vs aspiration. Cont clindamycin/Levaquin for now, will stop Vancomycin Tarik get repeat CXR now with worsening symptoms Mental status improved Wean O2 as able (2) Dysphagia Current Visit: Yes Comment: Cleared by [employer] for modified diet with mechanical ground and NTL (3) CHF (congestive heart failure) Current Visit: No Comment: May have some pulmonary edema. Stop IVF, give Lasix 40 mg IV x1 (4) Parkinson disease Current Visit: No Comment: Continue home Sinemet (5) Elevated troponin Current Visit: Yes Comment: due to demand ischemia (at 0.04 and 0.07) Echo shows EF 55%, mild to mod MR, mod Pulm HTN (6) COPD exacerbation Current Visit: No Comment: Continue Solumedrol 60 mg IV BID. Will make duonebs q6h ATC, continue prn albuterol. Treat infection as above. (7) CAD (coronary artery disease) Current Visit: No Comment: Continue ASA. Holding Metoprolol, Imdur. BPs have been labile. (8) DVT prophylaxis Current Visit: No Comment: HSQ (9) DNR (do not resuscitate) Current Visit: Yes Comment: MOLST updated.
--- NOTE | 2016-10-20 08:43 | RAD ---
HISTORY: Worsening hypoxia COMPARISONS: October 18, 2016 VIEWS:1: Single frontal portable view of the chest at 8:10 AM FINDINGS: LINES AND TUBES: None. CARDIOMEDIASTINAL SILHOUETTE: The cardiomediastinal silhouette is stable. PLEURA: The costophrenic angles are sharp. No pleural abnormalities are noted. LUNG PARENCHYMA: Again noted is diffuse patchy alveolar desiccation throughout both lungs, most mass within the right upper lung. This has progressed from the previous examination. ABDOMEN: The upper abdomen is clear. There is no subphrenic gas. BONES AND SOFT TISSUES: Degenerative changes are noted IMPRESSION: PROGRESSIVE MULTIFOCAL CONSOLIDATION
[2016-10-20] MEDS: Carbidopa/Levodop 25/100 MG TAB(*) PO SCH ×2 (09:02→13:49)
[2016-10-20] MEDS: QUEtiapine TAB* 25 MG PO SCH (09:03)
[2016-10-20] MEDS: Aspirin TAB* 325 MG PO SCH (09:20)
[2016-10-20] MEDS: Fluoxetine LIQ* 20 MG/5 ML UDC PO SCH (09:20)
[2016-10-20] MEDS ORDERED: Polyethylene Glycol 3350* 17 GM PACKET PO PRN (13:01)
[2016-10-20] MEDS: Docusate CAP* 100 MG PO PRN (13:50)
[2016-10-20] MEDS: Pantoprazole IV* 40 MG IV SCH (17:32)
[2016-10-20] MEDS: Morphine ORAL CONCENTRATE* 5 MG/0.25 ML ORAL.SYRIN PO PRN (18:46)
[2016-10-21] MEDS: Clindamycin 600 MG IVPREMIX(* 600 MG/50 ML SDV IV SCH ×3 (00:10→09:40)
[2016-10-21] MEDS: Morphine ORAL CONCENTRATE* 5 MG/0.25 ML ORAL.SYRIN PO PRN ×4 (00:10→07:43)
[2016-10-21] MEDS: QUEtiapine TAB* 25 MG PO SCH ×2 (00:15→09:46)
[2016-10-21] MEDS: Fluoxetine LIQ* 20 MG/5 ML UDC PO SCH ×2 (00:17→09:53)
[2016-10-21] MEDS: Carbidopa/Levodop 25/100 MG TAB(*) PO SCH ×2 (00:17→09:46)
[2016-10-21] MEDS: Primidone TAB(*) 50 MG PO SCH (00:18)
[2016-10-21] MEDS: Heparin VIAL(*) 5000 UNITS/ML VIAL (FIVE THOUSAND) SUBCUT SCH ×2 (00:18→06:08)
[2016-10-21] MEDS: Albuterol/Ipratropium NEB.SOL* Albuterol 2.5 MG/Ipratropium 0.5 MG 3 ML INH SCH ×3 (00:53→13:05)
--- NOTE | 2016-10-21 01:02 | CONS ---
PALLIATIVE CARE CONSULT REPORT: DATE OF CONSULT: 10/20/16 PRIMARY CARE PHYSICIAN: Darcie Smith MD REQUESTING PHYSICIAN FOR CONSULT: Aly Gore MD REASON FOR CONSULT: Evaluation for hospice. HOSPITAL COURSE: This is an 86-year-old female with a past medical history of COPD, on 3 L continuous; CHF with preserved EF; CKD; Parkinson's dementia, who presented to the emergency room on the from [facility] after being febrile. Initially, the patient was admitted to the floor for healthcare-associated pneumonia. Shortly after admission, she became more short of breath with respiratory distress. Chest x-ray showed new right upper lobe, new right middle lobe infiltrates. There was concern for aspiration on admission and she was transferred to the ICU for further care and broadened antibiotics. On admission, the patient had an echocardiogram done which showed an EF of 55% to 60%, [id number]-[id number] pulmonary hypertension, no significant valvular abnormalities. Initially, on admission, the patient was critically ill and there was a concern that the patient would not survive this hospitalization. She did improve about 36 hours after her admission. This morning, her respiratory status has deteriorated once again. Repeat chest x- ray this morning shows progressive multifocal consolidation. On my encounter with the patient, her and her daughter are at the bedside. Her primary proxies are her and her son and daughter-in- law, Theo and Mariya. She denies any respiratory distress and shortness of breath. No pain. She wants to get better but also wants to be comfortable. Initially, she failed a swallowing evaluation, but just passed today for a pureed diet. I spoke with the family my concern that her respiratory status would not improve with the findings of a chest x-ray, her lung exam, and requiring 10 L via nasal cannula. The was very tearful during our encounter as they have been together for 71 years. He had asked me to call the son, Theo, to talk more at length about my recommendation. The son has noted that she has been declining over the past several months and has had more bad days than good days. I discussed since she did improve initially that we can wait and see what transpires over the next 24 hours, but that more than likely she is an eligible candidate for hospice with her COPD and multifocal pneumonia and respiratory failure. Otherwise, remaining review of systems is negative. PAST MEDICAL HISTORY: COPD, on 3 L oxygen continuous; CHF, preserved EF; coronary artery disease; CKD; Parkinson's dementia; hyperlipidemia. MEDICATIONS: Inpatient medications: 1. Tylenol 650 mg every 4 hours as needed. 2. Albuterol 2.5 mg inhaled every 4 hours as needed. 3. DuoNeb q.6 hours. 4. Aspirin 325 mg daily. 5. Carbidopa/levodopa 25/100, 1.5 tabs p.o. t.i.d. 6. Clindamycin 600 mg every 6 hours. 7. Colace 100 mg p.o. b.i.d. as needed. 8. Fluoxetine 20 mg p.o. b.i.d. 9. Haloperidol 4 mg every 6 hours as needed. 10. Heparin 5000 units subcu t.i.d. 11. Levaquin 750 mg q.48 hours. 12. Mometasone/formoterol 2 puffs inhaled b.i.d. 13. Pantoprazole 40 mg IV q.24. 14. MiraLAX 17 g p.o. daily as needed. 15. Primidone 50 mg at bedtime. 16. Seroquel 25 mg p.o. b.i.d. 17. Spiriva 1 cap inhaled daily. 18. Clonazepam 1 mg p.o. t.i.d. as needed. 19. Methylprednisolone 60 mg IV q.12. ALLERGIES: PENICILLIN. FAMILY HISTORY: Reviewed and contributory. SOCIAL HISTORY: The patient was living at home with her in a hospital bed where daughter was mostly taking care of her up until recent admission this month where she was sent to [facility]. She ambulates with a walker. No history of smoking. Initially, on admission, her code status was full code. During this hospitalization, it was changed to DNR/DNI. Her healthcare proxy as mentioned is her son and [id number], Theo and Mariya. She did mention verbally to me that she wants her to be healthcare proxy as well. REVIEW OF SYSTEMS: As mentioned in the HPI. PHYSICAL EXAM: Vitals: Temp 98.1, pulse rate 114, respiratory rate 18, oxygen saturation 95% on 10 L nasal cannula, blood pressure /75. General: Some mild respiratory distress with increased work of breathing. HEENT: Pupils are equal and reactive, anicteric. Head: Normocephalic. Oropharynx: Mucous membranes dry. No erythema or exudate. Neck: Supple. No lymphadenopathy. Respiratory: Coarse rhonchorous upper airway breath sounds, diminished breath sounds, rhonchi heard throughout with increased work of breathing. Cardiac: Tachycardia, unable to appreciate any murmurs, rubs, or gallops. Abdomen: Some mild distention, nontender. Extremities: Positive pedal edema. Neurologic: She has a baseline resting tremor. Alert and oriented x2. Oriented to self and place. No focal neurologic deficits. DIAGNOSTIC STUDIES/LAB DATA: White count 12.3, hemoglobin 8.9, hematocrit 29, platelets 225. INR is 1.14. Sodium 144, potassium 4.2, chloride 111, bicarb 26 , BUN 22, creatinine 1.08, glucose 148, calcium 8.5. Troponin 0.07. As mentioned, chest x-ray from October 20 shows progressive multifocal consolidation. IMPRESSION AND PLAN: This is an 86-year-old female with a past medical history of chronic obstructive pulmonary disease, on 3 L prior to admission; congestive heart failure with preserved ejection fraction; chronic kidney disease; Parkinson's dementia, who presented to the emergency room from [facility] on the for fever and subsequently developed respiratory distress, admitted to the ICU for concern for aspiration pneumonia, has been placed on broad-spectrum antibiotics and initially improved, but seems to have deteriorated with worsening chest x-ray findings requiring 10 L of oxygen. I discussed with the family that I do not think that she will clinically improve with her age and comorbidities, but since she did initially improve that we can wait and see what transpires over the next 24 hours and if there is no significant improvement, to discuss her hospice eligibility, as I do feel she is a candidate for hospice with her respiratory failure and end-stage chronic obstructive pulmonary disease. I spoke with the , the daughter, and the son, Theo, who is the primary proxy over the phone as well. The plan is to reconvene Tuesday, the , in the afternoon. If they have a decision sooner, they can certainly relay this information, but we will reevaluate the patient on the with the family meeting at that time. In addition, I am going to add a low-dose morphine for her as needed for air hunger, does not seem to be apparent at this time for her, but clearly she is in mild respiratory distress. Thank you for this consultation. I will follow along with you. PATIENT TIME: Greater than 90 minutes was spent doing this consultation, more than half the time was in direct patient contact. CC: Darcie Smith MD* [id number]/[facility] #: [id number] MTDD
[2016-10-21] MEDS: Docusate CAP* 100 MG PO PRN (06:07)
[2016-10-21] MEDS: methylPREDNISolone SOD SUCC* 125 MG 2 ML VIAL IV SCH (06:07)
[2016-10-21 06:46] LABS: Hematocrit 29 % (35-47); Hemoglobin 9.4 g/dl (12.0-16.0); Mean Corpuscular HGB Conc 32 g/dl (31-36); Mean Corpuscular Hemoglobin 29 pg (27-31); Mean Corpuscular Volume 91 fL (80-97); Mean Platelet Volume 8 um3 (7.4-10.4); Red Blood Count 3.22 10^6/ul (4.0-5.4); Red Cell Distribution Width 15 % (10.5-15); White Blood Count 17.3 10^3/ul (3.5-10.8)
[2016-10-21 06:58] LABS: BUN/Creatinine Ratio 22.6 (8-20); Calcium 8.5 mg/dL (8.6-10.3); EGFR African American 73.9 (>60); EGFR Non-African American 57.4 (>60); Potassium 3.7 mmol/L (3.5-5.0)
[2016-10-21] MEDS: Mometasone/Formoter 200/5 MDI INH SCH (07:41)
[2016-10-21] MEDS: Tiotropium CAP.INH* CAP.INH/18 MCG INH SCH (07:43)
[2016-10-21] MEDS ORDERED: Furosemide IV* 10 MG/ML 10 ML VIAL (100 MG) IV ONE (07:44)
[2016-10-21] MEDS ORDERED: Furosemide IV* 10 MG/ML VIAL (40 MG) ONE (07:49)
[2016-10-21 07:58] VITALS: BP 155/90
--- NOTE | 2016-10-21 09:10 | PN ---
Subjective Date of Service: 10/21/16 Interval History: Patient seen this morning. Four family members present (, daughter Rubi , niece and sister). Patient with some hypoxia this morning on 10L and is currently on 12L. She awakens to voice, is able to identify her . Denies SOB although visibly working hard to breathe. Had good response to IV Lasix yesterday. Had long discussion with the family that patient's status continues to wax and wane. Explained that there is a time when continuing treatment may be doing more harm than good in terms of QOL. Encouraged them to let us know if they feel we've reached that point. Otherwise, will plan on family meeting with tomorrow. Family History: Unchanged from Admission Social History: Unchanged from Admission Past Medical History: Unchanged from Admission Objective Active Medications: Acetaminophen (Tylenol Tab*) 650 mg PO Q4H PRN Albuterol (Ventolin 2.5 Mg/3 Ml Neb.Sanjuanita*) 2.5 mg INH Q4H PRN Albuterol/Ipratropium (Duoneb (Albuterol 2.5 Mg/Ipratropium 0.5 Mg)) 1 neb INH Q6H [facility] Aspirin (Aspirin Tab*) 325 mg PO DAILY [facility]ORE Carbidopa/Levodopa (Sinemet 25/100 Tab(*)) 1.5 tab PO TID [facility] Clonazepam (Klonopin Tab(*)) 1 mg PO TID PRN Docusate Sodium (Colace Cap*) 100 mg PO BID PRN Fluoxetine HCl (Fluoxetine Liq*) 20 mg PO BID [facility] Furosemide (Lasix Iv*) 40 mg IV 0800,1700 [facility] Haloperidol (Haldol Tab*) 4 mg PO Q6H PRN Heparin Sodium (Porcine) (Heparin Vial(*)) 5,000 units SUBCUT Q8HR [facility] Levofloxacin/Dextrose (Levaquin 750 Mg Ivpremix(*)) 750 mg in 150 mls @ 100 mls /hr IVPB Q48H [facility] Clindamycin HCl/Dextrose (Cleocin 600 Mg Ivpremix(*) Sdv) 600 mg in 50 mls @ 100 mls/hr IV Q6H [facility] Isosorbide Mononitrate (Imdur Er Tab*) 30 mg PO DAILY [facility] Methylprednisolone Sodium Succinate (Solu-Medrol*) 60 mg IV Q12H [facility] Metoprolol Succinate (Toprol Xl Tab*) 25 mg PO DAILY [facility] Mometasone Furoate/Formoterol Fumar (Dulera 200/5 Mdi*) 2 puff INH BID [facility] Morphine Sulfate (Morphine Oral Concentrate*) 2.5 mg PO Q2H PRN Pantoprazole Sodium (Protonix Iv*) 40 mg IV Q24H [facility] Polyethylene Glycol/Electrolytes (Miralax*) 17 gm PO DAILY PRN Primidone (Mysoline Tab(*)) 50 mg PO BEDTIME [facility] Quetiapine Fumarate (Seroquel Tab*) 25 mg PO BID [facility]ORE Tiotropium [place] (Spiriva Cap.Inh*) 1 cap INH DAILY [facility] Vital Signs 10/20/16 10/20/16 10/20/16 11:10 15:43 16:30 Temperature 98.2 F 98.1 F Pulse Rate 111 106 114 Respiratory 15 27 18 Rate Blood Pressure 140/75 173/75 (mmHg) O2 Sat by Pulse 97 96 95 Oximetry 10/20/16 10/20/16 10/20/16 18:46 19:50 20:00 Temperature Pulse Rate 120 114 Respiratory 30 22 Rate Blood Pressure (mmHg) O2 Sat by Pulse 96 98 Oximetry 10/21/16 10/21/16 10/21/16 04:50 06:06 07:19 Temperature 98.2 F Pulse Rate 106 Respiratory 28 28 18 Rate Blood Pressure 155/90 (mmHg) O2 Sat by Pulse 82 Oximetry 10/21/16 10/21/16 10/21/16 07:43 07:58 08:00 Temperature Pulse Rate 104 Respiratory 22 20 22 Rate Blood Pressure (mmHg) O2 Sat by Pulse 93 Oximetry Oxygen Devices in Use Now: Nasal Cannula - 12L Appearance: Elderly, F, laying in bed in visible respiratory distress Eyes: No Scleral Icterus Ears/Nose/Mouth/Throat: - - Dry MM Neck: NL Appearance and Movements; NL JVP Respiratory: - - Tachypnea, some accessory muscle use, coarse ronchi through B/ L upper lung wyman (R>L), rales in bases Cardiovascular: - - Tachycardia, no m/g/r Abdominal: NL Sounds; No Tenderness; No Distention Lymphatic: No Cervical Adenopathy Extremities: No Edema Skin: No Rash or Ulcers Neurological: - - Alert, oriented to self, no focal deficits Result Diagrams: 10/21/16 06:20 10/21/16 06:20 Additional Lab and Data: Microbiology and Other Data: Assess/Plan/Problems-Billing Assessment: 86 yo F with h/o dementia, recent pneumonia, from [facility] for rehab, COPD, CHF and Parkinson's presents with respiratory distress with R lung pneumonia - Patient Problems (1) Acute respiratory failure Current Visit: Yes Comment: hypoxemic, septic according to SOFA (at admission) due to healthcare associated R lung pnemonia vs aspiration. Cont clindamycin/Levaquin for now Appreciate PC consult, will continue discussions with family (2) Dysphagia Current Visit: Yes Comment: Cleared by [employer] for modified diet with mechanical ground and NTL (3) CHF (congestive heart failure) Current Visit: No Comment: Excellent response to Lasix on 10/20, will start Lasix 40 mg IV BID, monitor strict I/O (4) Parkinson disease Current Visit: No Comment: Continue home Sinemet (5) Elevated troponin Current Visit: Yes Comment: due to demand ischemia (at 0.04 and 0.07) Echo shows EF 55%, mild to mod MR, mod Pulm HTN (6) COPD exacerbation Current Visit: No Comment: Continue Solumedrol 60 mg IV BID, duonebs q6h ATC, continue prn albuterol. Treat infection as above. (7) CAD (coronary artery disease) Current Visit: No Comment: Continue ASA. Restart Metoprolol. Holding Imdur. (8) DVT prophylaxis Current Visit: No Comment: HSQ (9) DNR (do not resuscitate) Current Visit: Yes Comment: DNR Status and Disposition: Will see how patient dose over next 24 hours and consider transtion to comfort care, appreciate PC assistance
[2016-10-21] MEDS: Metoprolol Succinate XL TAB* 25 MG PO SCH (09:18)
[2016-10-21] MEDS: Isosorbide Mononitrate ER TAB* 30 MG PO SCH (09:18)
[2016-10-21] MEDS: Aspirin TAB* 325 MG PO SCH (09:47)
[2016-10-21] MEDS ORDERED: Metoprolol Tartrate TAB* 25 MG PO SCH (10:00)
[2016-10-21] MEDS ORDERED: Vancomycin Trough Check NOTE FOLLOW UP ONE (14:30)
--- NOTE | 2016-10-21 15:06 | PN ---
Hospitalist Progress Note CAT call On my arrival patient was cyanotic with agonal breathing. Apparently had an aspiration episode shortly prior to cat call. On my examination could not appreciate a carotid pulse. Due to DNR/DNI status and recent discussions with family, attempts to resuscitate patient were not undertaken. Full exam showed absence of cardiac or pulmonary sounds, absence of carotid pulses. Patient pronounced at 1455 on 10/21/2016. Family requests [facility] for arrangements. Decline autopsy.
[2016-10-21] MEDS ORDERED: Furosemide IV* 10 MG/ML 10 ML VIAL (100 MG) IV SCH (17:00)
--- NOTE | 2016-10-22 01:11 | DS ---
DISCHARGE/ SUMMARY: DATE OF ADMISSION: 10/17/16 DATE OF DISCHARGE: 10/21/16 PRINCIPAL DISCHARGE DIAGNOSIS: Multifocal pneumonia. HISTORY OF PRESENT ILLNESS: Ms. Bach was a pleasant 86-year-old female who was recently admitted at [facility] for pneumonia and COPD exacerbation, who [facility] after she was found febrile to 103. The patient had significant chest x-ray findings and required significant oxygen and was initially admitted to the ICU. She was started on broad-spectrum antibiotics. Over the following days, her status waxed and waned. She was initially nearly unresponsive; however, her mental status improved. However, she continue to require significant oxygen therapy. Due to her clinical status, a palliative care consult was obtained. Decision was made to monitor the patient for another 24 hours to see if there was any improvement and if not, then consider transition to comfort care. Unfortunately the following day, the patient deteriorated in the afternoon. CAT team was called. On my arrival, the patient was cyanotic with agonal breathing. As she was DNR /DNI, no further efforts were made to resuscitate the patient and she was allowed to pass away with her family at her bedside. TIME SPENT: Total time spent on this discharge 40 minutes. This is the summary of the hospitalization. Please see the full medical record for further details. [id number]/[facility] #: [id number] [facility]
== END 2016-10-21 14:55 | disposition expired | DRG 190 ==
LOC: ED 18:29 → MED 20:58 → MEDTELE 23:12 → ICU 10-18 07:27 → MED 10-19 17:58
PROVIDERS: ADMIT Internal Medicine; ATTEND Hospitalist
PROC: 5A09357 Assistance with Respiratory Ventilation, Less than 24 Consecutive Hours, Continuous Positive Airway Pressure (ICD-10-PCS; principal; 2016-10-17)
DX: J44.0 Chronic obstructive pulmonary disease with (acute) lower respiratory infection (principal); J18.9 Pneumonia, unspecified organism; J96.01 Acute respiratory failure with hypoxia; I27.2 Other secondary pulmonary hypertension; I13.0 Hypertensive heart and chronic kidney disease with heart failure and stage 1 through stage 4 chronic kidney disease, or unspecified chronic kidney disease; I50.9 Heart failure, unspecified; G20 Parkinson's disease; F02.80 Dementia in other diseases classified elsewhere, unspecified severity, without behavioral disturbance, psychotic disturbance, mood disturbance, and anxiety; R13.10 Dysphagia, unspecified; Z66 Do not resuscitate; Z91.048 Other nonmedicinal substance allergy status; I25.10 Atherosclerotic heart disease of native coronary artery without angina pectoris; N18.3 Chronic kidney disease, stage 3 (moderate); Z95.5 Presence of coronary angioplasty implant and graft; Z98.42 Cataract extraction status, left eye; Z98.41 Cataract extraction status, right eye; Z88.0 Allergy status to penicillin; J45.909 Unspecified asthma, uncomplicated; F41.9 Anxiety disorder, unspecified; Z85.3 Personal history of malignant neoplasm of breast; Z82.49 Family history of ischemic heart disease and other diseases of the circulatory system; I34.0 Nonrheumatic mitral (valve) insufficiency; R79.89 Other specified abnormal findings of blood chemistry; J44.1 Chronic obstructive pulmonary disease with (acute) exacerbation
CPT/HCPCS: 36415; 36600; 71010; 80048; 80053; 80202; 81003; 81015; 82550; 82565; 82803; 83605; 83880; 84484; 84520; 85025; 85384; 85610; 85730; 86140; 87040; 87086; 87502; 87641; 87899; 93005; 93306; 94640; 94660; 94760; A9270-GY; J1644; J1940; J2930; J3370